=== PATIENT | male | born 1935 | race Caucasian/White ===

== ENCOUNTER → 2016-10-03 | Day surgery (SDC) | payer BC ==
[2016-09-30 13:06] VITALS: Ht 182.9 cm; Wt 70.5 kg
[~2016-10-03] VITALS: Ht 182.9 cm; Wt 70.5 kg
[~2016-10-03] MED LIST: 500ML BSS 0.3ML EPI 1:1000PF IRRIG ONE; ACETAMINOPHEN 325 MG TAB PO PRN; AMVISC PLUS 0.8ML SYRINGE INT OCU ONE; ATROPINE SULFATE 0.1 MG/ML 5ML SYR IV PRN; ATV1 PO; BSS FLUSH ONE; EpHEDrine SULFATE INJ 50 MG/ML AMP IV PRN; EpINEphrine INJ 1MG/ML AMP 1 MG/ML AMP ONE; GABA1CAP4 PO; GABA1CAP5 PO; GATI0.5S OP; LACTATED RINGER'S 1000ML 500 ML IV SCH; LIDOCAINE 3.5% OPH GEL PER APPLICATION CHARGE ONE; LIDOCAINE HCL 1% MPF 2 ML VIAL ONE; LORA-741 PO; MIDAZOLAM HCL 1 MG/ML 2ML VIAL ONE; NRN100 PO; OCUCOAT 1 ML SOLN IO ONE; PEDI1CHW95 PO; POLY335019 PO; POVIDONE-IODINE OP SOLN 30 ML BTL ONE; PRED1SUS3 OPL; PROPARACAINE 0.5% OP SOLN PER DROP CHARGE OPL SCH; TOBRAMYCIN/DEXAMETHASONE OPH OINT PER APPLN CHARGE ONE
[2016-10-03] MEDS: PHENYLEPHRINE HCL 2.5% OP SOLN PER DROP CHARGE OPL SCH ×2 (09:43→09:48)
[2016-10-03] MEDS: TROPICAMIDE 1% OP SOLN PER DROP CHARGE OPL SCH ×2 (09:44→09:49)
[2016-10-03] MEDS: CYCLOPENTOLATE HCL 1% OP SOLN PER DROP CHARGE OPL SCH ×2 (09:45→09:50)
[2016-10-03] MEDS: KETOROLAC 0.5% OP SOLN PER DROP CHARGE OPL SCH ×2 (09:46→09:51)
[2016-10-03] MEDS: GATIFLOXACIN OP SOLN PER DROP CHARGE OPL SCH ×2 (09:47→09:52)
--- NOTE | 2016-10-03 09:48 | History & Physical Bridge - [place] ---
H&P Re-Evaluation Bridge Note: I have examined the patient, reviewed the History & Physical and in the interval since the performance of the History & Physical I have noted the following changes of clinical significance: No changes noted
--- NOTE | 2016-10-03 10:29 | Discharge Instructions-SurgCtr ---
Discharge Instructions Visit Reason for Visit: Cataract Left Eye Discharge Discharge Diagnosis / Problem: cataract Discharge Goals Goal(s): Improve function Activity Recommendations Activity Limitations: per Instructions/Follow-up section Anesthesia . Post Anesthesia Instructions: If you have had General Anesthesia or IV Sedation: * Do not drive today. * Resume driving when surgeon permits. * Do not make important decisions or sign legal documents today. * Call surgeon for: 1. Temperature elevations greater than 101 degrees F. 2. Uncontrollable pain. 3. Excessive bleeding. 4. Persistent nausea and vomiting. 5. Medication intolerance (nausea, vomiting or rash). * For nausea and vomiting use only clear liquids such as: tea, soda, bouillon until nausea subsides, then gradually increase diet as tolerated. * If you have any concerns or questions, call your surgeon's office. If physician is unavailable and it is an emergency, call 911 or go to the nearest emergency room. . Instructions / Follow-Up Instructions / Follow-Up ACTIVITY RECOMMENDATIONS: * No strenuous lifting, jogging or running for 4 days * No swimming or yard work for 1 week. * Limited bending is permitted, such as putting on shoes. RETURN TO SCHOOL/WORK: No work until seen by physician in office. MEDICATIONS: Resume previous medications unless instructed otherwise by your surgeon. This includes eye drops for glaucoma. Zymaxid/Gatifloxacin (oh cap) - one drop every 2 hours until bedtime Nevanac/Ilevro/Prolensa/Ketorolac (ahn cap) - one drop every 4 hours until bedtime Prednisolone (white/pink cap, SHAKE WELL) - one drop every 2 hours until bedtime Starting tomorrow - all 3 drops every 4 hours until seen in the office Optive drops - as needed for discomfort SPECIAL CARE INSTRUCTIONS: * Wear eyeshield when sleeping, for four nights. * You may wear your own glasses or sunglasses while awake. * You may read or watch TV * You may shower and wash your face, but be gentle around the eye and pat dry. * Blurry vision and mild irritation are normal. * Call office if pain is more severe or vision becomes dark at . FOLLOW UP VISIT: Follow-up with Dr Pringle tomorrow. Diet Recommendations Home Diet: resume previous diet Procedures Procedures Performed: Left Cataract Phacoemulsification With Intraocular Lens Implant Pending Studies Studies pending at discharge: no Medical Emergencies . Who to Call and When: Medical Emergencies: If at any time you feel your situation is an emergency, please call 911 immediately. . Non-Emergent Contact Non-Emergency issues call your: Pathology Laboratory Director . . "Provider Documentation" section prepared by Maury Pringle.
--- NOTE | 2016-10-03 10:30 | [facility] Operative Report ---
Operative Report 1. PREOPERATIVE DIAGNOSIS: Cataract of the left eye. 2. POSTOPERATIVE DIAGNOSIS: Same. 3. PROCEDURE: Phacoemulsification with intraocular lens implantation of the left eye. SURGEON: Dr. Maury Pringle. ANESTHESIA: Topical Lidocaine gel, 1% Non- Preserved intracameral Lidocaine, and monitored intravenous sedation. INDICATIONS FOR THE PROCEDURE: The patient is a 81 - year-old male with a history of cataract of the left eye causing significant visual impairment. The details of the proposed procedure were explained to the patient who asked appropriate questions and following discussion of all risks, benefits and alternatives agreed to have the procedure done. 4. OPERATION AND FINDINGS: DESCRIPTION OF PROCEDURE: After informed consent was obtained, the patient was brought to the Operating Room at the [facility]. The patient was placed in a supine position and then the left eye was prepped and draped in the usual sterile fashion for intraocular surgery. A drop of topical Lidocaine gel was placed in the operative eye. A wire lid speculum was then placed in the fornices. A corneal paracentesis was then created temporally. The Non-Preserved Lidocaine was then instilled into the anterior chamber. The anterior chamber was then pressurized with viscoelastic. A 2.0 mm clear corneal incision was then created temporally. A cystotome was inserted into the anterior chamber and used to create a tear in the anterior lens capsule. This capsular tear was then used to create a small flap and the flap was dragged in a counterclockwise direction in order to create a continuous curvilinear capsulorrhexis. Hydrodissection was accomplished with balanced salt solution. Phacoemulsification of the lens nucleus was then performed in a standard [id number] technique. The phaco time was 40 seconds with an average power of 13 %. The remaining cortical material was removed using irrigation aspiration. The capsular bag was then filled with viscoelastic. A Bausch & Lomb MI60L +20.5 diopters lens was then loaded into the injector and injected into the capsular bag. The remaining viscoelastic was removed with the irrigation aspiration handpiece. The wound was hydrated and then checked and found to be watertight. The intraocular pressure was checked and found to be adequate. The wire lid speculum was removed and the patient's face was cleaned and dried. TobraDex ointment was placed in the inferior fornix. The patient was discharged to the Recovery Room having tolerated the procedure well. There were no complications. The patient will be seen tomorrow in the office for follow-up. I attest to the content of the Intraoperative Record and any orders documented therein. Any exceptions are noted below.
[2016-10-03 10:36] VITALS: TEMP 36.4
--- NOTE | 2016-10-03 10:39 | Anesthesia Progress Nt - [facility] ---
Anesthesia Post Op Note Date & Time Oct 03, 2016 at 10:40 Vital Signs Pain Intensity: 0 Vital Signs Past 12 Hours Date Time Temp Pulse Resp B/P Pulse Ox O2 Delivery O2 Flow Rate FiO2 10/03/16 10:36 36.4 69 16 119/75 100 Room Air 10/03/16 09:40 36.5 59 16 133/75 99 Room Air Notes Mental Status: alert / awake / arousable, participated in evaluation Pt Amnestic to Procedure: Yes Nausea / Vomiting: adequately controlled Pain: adequately controlled Airway Patency, RR, SpO2: stable & adequate BP & HR: stable & adequate Hydration State: stable & adequate Anesthetic Complications: no major complications apparent
[2016-10-03 10:52] VITALS: BP 112/72; PULSE 68; O2SAT 98
== END | disposition home or self-care (01) ==
LOC: X.SURG 08:18
PROVIDERS: ATTEND Ophthalmology
DX: H26.9 Unspecified cataract (principal); H54.7 Unspecified visual loss; E78.5 Hyperlipidemia, unspecified; M51.26 Other intervertebral disc displacement, lumbar region; M41.9 Scoliosis, unspecified; E11.9 Type 2 diabetes mellitus without complications; Z98.890 Other specified postprocedural states; Z88.8 Allergy status to other drugs, medicaments and biological substances

== ENCOUNTER → 2016-10-31 | Day surgery (SDC) | payer BC ==
[2016-10-16 10:45] VITALS: Ht 182.9 cm; Wt 70.5 kg
[~2016-10-31] VITALS: Ht 182.9 cm; Wt 70.5 kg
[~2016-10-31] MED LIST changes: -GATI0.5S OP; -PROPARACAINE 0.5% OP SOLN PER DROP CHARGE OPL SCH; +PROPARACAINE 0.5% OP SOLN PER DROP CHARGE OPR SCH
[2016-10-31] MEDS: PHENYLEPHRINE HCL 2.5% OP SOLN PER DROP CHARGE OPR SCH ×2 (07:26→07:32)
[2016-10-31] MEDS: TROPICAMIDE 1% OP SOLN PER DROP CHARGE OPR SCH ×2 (07:27→07:33)
[2016-10-31] MEDS: CYCLOPENTOLATE HCL 1% OP SOLN PER DROP CHARGE OPR SCH ×2 (07:28→07:34)
[2016-10-31] MEDS: KETOROLAC 0.5% OP SOLN PER DROP CHARGE OPR SCH ×2 (07:29→07:35)
[2016-10-31] MEDS: GATIFLOXACIN OP SOLN PER DROP CHARGE OPR SCH ×2 (07:30→07:42)
--- NOTE | 2016-10-31 08:24 | Discharge Instructions-SurgCtr ---
Discharge Instructions Date of Service Oct 31, 2016. Visit Reason for Visit: Cataract Right Eye Discharge Discharge Diagnosis / Problem: cataract Discharge Goals Goal(s): Improve function Activity Recommendations Activity Limitations: per Instructions/Follow-up section Anesthesia . Post Anesthesia Instructions: If you have had General Anesthesia or IV Sedation: * Do not drive today. * Resume driving when surgeon permits. * Do not make important decisions or sign legal documents today. * Call surgeon for: 1. Temperature elevations greater than 101 degrees F. 2. Uncontrollable pain. 3. Excessive bleeding. 4. Persistent nausea and vomiting. 5. Medication intolerance (nausea, vomiting or rash). * For nausea and vomiting use only clear liquids such as: tea, soda, bouillon until nausea subsides, then gradually increase diet as tolerated. * If you have any concerns or questions, call your surgeon's office. If physician is unavailable and it is an emergency, call 911 or go to the nearest emergency room. . Instructions / Follow-Up Instructions / Follow-Up ACTIVITY RECOMMENDATIONS: * No strenuous lifting, jogging or running for 4 days * No swimming or yard work for 1 week. * Limited bending is permitted, such as putting on shoes. RETURN TO SCHOOL/WORK: No work until seen by physician in office. MEDICATIONS: Resume previous medications unless instructed otherwise by your surgeon. This includes eye drops for glaucoma. Zymaxid/Gatifloxacin (oh cap) - one drop every 2 hours until bedtime Nevanac/Ilevro/Prolensa/Ketorolac (ahn cap) - one drop every 4 hours until bedtime Prednisolone (white/pink cap, SHAKE WELL) - one drop every 2 hours until bedtime Starting tomorrow - all 3 drops every 4 hours until seen in the office Optive drops - as needed for discomfort SPECIAL CARE INSTRUCTIONS: * Wear eyeshield when sleeping, for four nights. * You may wear your own glasses or sunglasses while awake. * You may read or watch TV * You may shower and wash your face, but be gentle around the eye and pat dry. * Blurry vision and mild irritation are normal. * Call office if pain is more severe or vision becomes dark at . FOLLOW UP VISIT: Follow-up with Dr Pringle tomorrow. Diet Recommendations Home Diet: resume previous diet Procedures Procedures Performed: Right Cataract Phacoemulsification With Intraocular Lens Implant Pending Studies Studies pending at discharge: no Medical Emergencies . Who to Call and When: Medical Emergencies: If at any time you feel your situation is an emergency, please call 911 immediately. . Non-Emergent Contact Non-Emergency issues call your: Final Expense Agent . . "Provider Documentation" section prepared by Maury Pringle.
--- NOTE | 2016-10-31 08:24 | [facility] Operative Report ---
Operative Report Date of Service Oct 31, 2016. Operative Report 1. PREOPERATIVE DIAGNOSIS: Cataract of the right eye. 2. POSTOPERATIVE DIAGNOSIS: Same. 3. PROCEDURE: Phacoemulsification with intraocular lens implantation of the right eye. SURGEON: Dr. Maury Pringle. ANESTHESIA: Topical Lidocaine gel, 1% Non- Preserved intracameral Lidocaine, and monitored intravenous sedation. INDICATIONS FOR THE PROCEDURE: The patient is a 81 - year-old male with a history of cataract of the right eye causing significant visual impairment. The details of the proposed procedure were explained to the patient who asked appropriate questions and following discussion of all risks, benefits and alternatives agreed to have the procedure done. 4. OPERATION AND FINDINGS: DESCRIPTION OF PROCEDURE: After informed consent was obtained, the patient was brought to the Operating Room at the [facility]. The patient was placed in a supine position and then the right eye was prepped and draped in the usual sterile fashion for intraocular surgery. A drop of topical Lidocaine gel was placed in the operative eye. A wire lid speculum was then placed in the fornices. A corneal paracentesis was then created temporally. The Non-Preserved Lidocaine was then instilled into the anterior chamber. The anterior chamber was then pressurized with viscoelastic. A 2.0 mm clear corneal incision was then created temporally. A cystotome was inserted into the anterior chamber and used to create a tear in the anterior lens capsule. This capsular tear was then used to create a small flap and the flap was dragged in a counterclockwise direction in order to create a continuous curvilinear capsulorrhexis. Hydrodissection was accomplished with balanced salt solution. Phacoemulsification of the lens nucleus was then performed in a standard [id number]-[id number] technique. The phaco time was 35 seconds with an average power of 13 %. The remaining cortical material was removed using irrigation aspiration. The capsular bag was then filled with viscoelastic. A Bausch & Lomb MI60L +20.5 diopters lens was then loaded into the injector and injected into the capsular bag. The remaining viscoelastic was removed with the irrigation aspiration handpiece. The wound was hydrated and then checked and found to be watertight. The intraocular pressure was checked and found to be adequate. The wire lid speculum was removed and the patient's face was cleaned and dried. TobraDex ointment was placed in the inferior fornix. The patient was discharged to the Recovery Room having tolerated the procedure well. There were no complications. The patient will be seen tomorrow in the office for follow-up. I attest to the content of the Intraoperative Record and any orders documented therein. Any exceptions are noted below.
[2016-10-31 08:26] VITALS: TEMP 36.7
[2016-10-31 08:46] VITALS: BP 111/68; PULSE 76; O2SAT 94
--- NOTE | 2016-10-31 08:52 | Anesthesia Progress Nt - [facility] ---
Anesthesia Post Op Note Date & Time Oct 31, 2016 at 08:53 Vital Signs Pain Intensity: 0 Vital Signs Past 12 Hours Date Time Temp Pulse Resp B/P Pulse Ox O2 Delivery O2 Flow Rate FiO2 10/31/16 08:46 76 16 111/68 94 Room Air 10/31/16 08:26 36.7 75 16 92/54 97 Room Air 10/31/16 07:16 36.3 74 20 115/73 100 Room Air Notes Mental Status: alert / awake / arousable, participated in evaluation Pt Amnestic to Procedure: Yes Nausea / Vomiting: adequately controlled Pain: adequately controlled Airway Patency, RR, SpO2: stable & adequate BP & HR: stable & adequate Hydration State: stable & adequate Anesthetic Complications: no major complications apparent
== END | disposition home or self-care (01) ==
LOC: X.SURG 06:57
PROVIDERS: ATTEND Ophthalmology
DX: H26.9 Unspecified cataract (principal); H54.7 Unspecified visual loss; E11.9 Type 2 diabetes mellitus without complications; Z98.42 Cataract extraction status, left eye

== ENCOUNTER → 2016-11-04 | Outpatient (CLI) | payer BC ==
[~2016-11-04] MED LIST changes: -500ML BSS 0.3ML EPI 1:1000PF IRRIG ONE; -ACETAMINOPHEN 325 MG TAB PO PRN; -AMVISC PLUS 0.8ML SYRINGE INT OCU ONE; -ATROPINE SULFATE 0.1 MG/ML 5ML SYR IV PRN; -BSS FLUSH ONE; -EpHEDrine SULFATE INJ 50 MG/ML AMP IV PRN; -EpINEphrine INJ 1MG/ML AMP 1 MG/ML AMP ONE; -LACTATED RINGER'S 1000ML 500 ML IV SCH; -LIDOCAINE 3.5% OPH GEL PER APPLICATION CHARGE ONE; -LIDOCAINE HCL 1% MPF 2 ML VIAL ONE; -MIDAZOLAM HCL 1 MG/ML 2ML VIAL ONE; -OCUCOAT 1 ML SOLN IO ONE; -POVIDONE-IODINE OP SOLN 30 ML BTL ONE; -PROPARACAINE 0.5% OP SOLN PER DROP CHARGE OPR SCH; -TOBRAMYCIN/DEXAMETHASONE OPH OINT PER APPLN CHARGE ONE
[2016-11-04 09:50] LABS: BASO % 0.7 %; BASO ABS # 0.03 K/uL (0-0.2); COMPLETE YES; EOS % 0.7 %; HEMATOCRIT 45.4 % (42-52); IG% 0.2 %; LYMPH % 39.8 %; LYMPH ABS # 1.81 K/uL (1.2-3.4); MEAN CELL VOLUME 92.7 fL (80-100); MEAN CORPUSCULAR HEMOGLOBIN 31.8 pg (25-34); MEAN CORPUSCULAR HGB CONC 34.4 g/dl (32-36); MEAN PLATELET VOLUME 10.1 fL (7.4-10.4); MONO % 10.1 %; NEUT % 48.5 %; PLATELET COUNT 181 K/uL (130-400); WHITE BLOOD COUNT 4.55 K/uL (4.8-10.8)
[2016-11-04 10:17] LABS: ESTIMATED AVERAGE GLUCOSE 171 mg/dl; HA1C FLAG Normal (Normal)
[2016-11-04 10:26] LABS: ALKALINE PHOSPHATASE 72 U/L (45-117); ALT/SGPT 38 U/L (12-78); AST/SGOT 26 U/L (15-37); BLOOD UREA NITROGEN 24 mg/dl (7-18); BUN/CREATININE RATIO 18.5 (10-20); CALCIUM 8.3 mg/dl (8.5-10.1); CARBON DIOXIDE 31 mmol/L (21-32); CHLORIDE 105 mmol/L (98-107); CHOLESTEROL 226 mg/dl (0-200); GLUCOSE 148 mg/dl (70-99); POTASSIUM 4.1 mmol/L (3.5-5.1); SODIUM 143 mmol/L (136-145); TRIGLYCERIDES 150 mg/dl (0-150); URIC ACID 5.4 mg/dl (2.6-7.2); VERY LOW DENSITY LIPOPROT CALC 30 mg/dl
[2016-11-04 10:29] LABS: CHOLESTEROL/HDL RATIO 4.1; HDL CHOLESTEROL 55 mg/dl; LDL CHOLESTEROL CALCULATED 141 mg/dl
== END | disposition home or self-care (01) ==
LOC: C.LAB1850 08:27
PROVIDERS: ATTEND Internal Medicine
DX: E11.9 Type 2 diabetes mellitus without complications (principal); E78.5 Hyperlipidemia, unspecified; D72.819 Decreased white blood cell count, unspecified; K59.00 Constipation, unspecified

== ENCOUNTER 2017-03-18 00:08 | Inpatient (IN) | payer BC, OTHER ==
[~2017-03-18] VITALS: Ht 182.9 cm; Wt 70.0 kg
[~2017-03-18 00:08] MED LIST changes: -ATV1 PO; -GABA1CAP4 PO; -NRN100 PO
[2017-03-18] MEDS ORDERED: ASPIRIN 324 MG CHEW PO STA (00:25)
[2017-03-18] MEDS ORDERED: SODIUM CHLORIDE 0.9% 1000ML 1,000 ML IV ONE (00:30)
[2017-03-18] MEDS ORDERED: NITROGLYCERIN OINT 2% 1GM PACKET EXT ONE (00:30)
[2017-03-18 00:45] LABS: BASO % 0.5 %; BASO ABS # 0.04 K/uL (0-0.2); COMPLETE YES; EOS % 0.7 %; HEMATOCRIT 49.7 % (42-52); IG% 0.1 %; LYMPH % 28.6 %; LYMPH ABS # 2.12 K/uL (1.2-3.4); MEAN CELL VOLUME 94.3 fL (80-100); MEAN CORPUSCULAR HEMOGLOBIN 31.5 pg (25-34); MEAN CORPUSCULAR HGB CONC 33.4 g/dl (32-36); NEUT % 63.1 %; PLATELET COUNT 182 K/uL (130-400); RED BLOOD COUNT 5.27 M/uL (4.7-6.1); WHITE BLOOD COUNT 7.41 K/uL (4.8-10.8)
[2017-03-18] MEDS ORDERED: ATV1 PO (00:48)
[2017-03-18] MEDS ORDERED: GABA1CAP4 PO (00:48)
[2017-03-18] MEDS ORDERED: NRN100 PO (00:48)
[2017-03-18 00:55] LABS: PARTIAL THROMBOPLASTIN RATIO 0.9; PROTHROMBIN TIME (PATIENT) 10.4 SECONDS (9.0-12.0)
[2017-03-18 01:23] LABS: BUN/CREATININE RATIO 18.5 (10-20); CALCIUM 8.6 mg/dl (8.5-10.1); CREATININE 1.2 mg/dl (0.60-1.40); MAGNESIUM 2.2 mg/dl (1.8-2.4); POTASSIUM 4.6 mmol/L (3.5-5.1)
[2017-03-18 01:31] LABS: ALB/GLOB RATIO 1.1 (0.9-2); THYROID STIMULATING HORMONE 3.32 uIu/ml (0.300-4.500)
[2017-03-18] MEDS ORDERED: MoRPHine SULFATE 4 MG/ML 1 ML CARP\\VIAL IV ONE (02:00)
[2017-03-18] MEDS ORDERED: ONDANSETRON INJ 2 MG/ML 2 ML VIAL IV STA (02:19)
[2017-03-18] MEDS ORDERED: RANITIDINE HCL 50 MG/100 ML D5W IV STA (02:24)
[2017-03-18] MEDS ORDERED: ONDANSETRON INJ 2 MG/ML 2 ML VIAL IV PRN ×2 (02:30→06:30)
[2017-03-18] MEDS ORDERED: LORAZEPAM 0.5 MG TAB PO PRN (02:30)
[2017-03-18] MEDS ORDERED: RANITIDINE HCL 50 MG/100 ML D5W ONE (02:32)
[2017-03-18] MEDS ORDERED: PROMETHAZINE HCL INJ 12.5 MG in SODIUM CHLORIDE 0.9% 50ML 50 ML IV PRN (02:45)
--- NOTE | 2017-03-18 02:45 | History and Physical ---
History & Physical Date & Time of Service: Mar 18, 2017 at 02:23 Chief Complaint: Back Pain,Stomach Pain,Chest Pain,Queasiness Primary Care Physician: David Piña M.D. History of Present Illness Source: patient, clinic records, hospital records Mr Lyons is an 81 year old male with Hx idiopathic pancreatitis who presents to the ER with progressively worse epigastric pain, nausea and vomiting. Initially he woke up with back pain radiating to right side of groin which is the same chronic pain he has woken up with for years although this morning it was a lot ore severe (usually is around a 4-5/10, this morning around 7-8/10). The pain usually improves throughout the day however he continued to have pain until he was going to bed. At around 21:30 he took Tylenol and codeine and after which he had sudden onset epigastric pain which was similar to his previous pancreatitis episodes therefore he decided to come to the ER. He denies any fevers or chills. He had some diarrhea earlier in the week which cleared up over the last few days (not unusual for him as he takes Metamucil to stop him becoming constipated but also intermittently causes him to have diarrhea). He is passing plenty of flatus. Last BM was earlier in the afternoon. He denies any bloody or melena stool. In the ER there was concern for some chest pain (the patient now reports this was epigastric rather than chest) and the patient was treated with aspirin and morphine which appeared to make his pain and nausea much worse. His lipase was elevated therefore he was referred as pancreatitis. Past Medical/Surgical History Medical Problems: (1) Acute pancreatitis Status: Resolved (2) ANEMIA NOS Status: Chronic (3) Cholecystectomy Status: Resolved (4) CHRONIC SINUSITIS NEC Status: Chronic (5) DIAB NATALIIA WO COMPL, TYPE II OR UNSPEC TYPE, NOT UNCNTRLD Status: Chronic (6) HYPERLIPIDEMIA NEC/NOS Status: Chronic (7) PURE HYPERCHOLESTEROLEM Status: Chronic Family History Noncontributory Social History Smoking Status: Never Smoker Smokeless Tobacco Use: No Alcohol Use: none Drug Use: none Marital Status: Housing status: lives with family Occupational Status: retired Immunizations History of Influenza Vaccine: Yes History of Tetanus Vaccine?: Yes History of Pneumococcal: Yes Pneumococcal Date: Mar 02, 2004 History of Hepatitis B Vaccine: No Multi-Drug Resistant Organisms History of MDRO: Yes Allergies Coded Allergies: No Known Allergies (Verified , 03/18/17) Home Medications Scheduled Gabapentin (Gabapentin), 300 MG PO TID Gabapentin (Gabapentin), 100 MG PO TID Polyethylene Glycol 3350 (Miralax), 17 GM PO DAILY Scheduled PRN Lorazepam (Lorazepam), 0.5 MG PO DAILY PRN for Anxiety Review of Systems Constitutional: No fever, No chills Eyes: No worsening of vision Respiratory: No cough, No shortness of breath Cardiovascular: No chest pain Abdomen: + pain, + nausea, + vomiting, No diarrhea, No constipation, No GI bleeding Musculoskeletal: No joint pain, No muscle pain Genitourinary - Male: + urinary frequency (increased frequency today), No hematuria, No dysuria, No urinary urgency Integumentary: No rash, No itch Physical Exam Vital Signs Date Time Temp Pulse Resp B/P (MAP) Pulse Ox O2 Delivery O2 Flow Rate FiO2 03/18/17 02:18 84 18 134/80 97 Room Air 03/18/17 00:57 89 03/18/17 00:56 82 18 134/81 98 Room Air 03/18/17 00:28 100 03/18/17 00:13 36.5 65 16 119/91 94 Room Air General Appearance: WD/WN, + moderate distress (from epigastric pain, nausea and vomiting) Eyes: PERRL Respiratory/Chest: chest non-tender, lungs clear, normal breath sounds, no respiratory distress, no accessory muscle use Cardiovascular: regular rate, rhythm, no edema, no murmur, normal peripheral pulses Abdomen/GI: normal bowel sounds, soft, + tenderness (epigastric without rebound or guarding) Back: no CVA tenderness Extremities/Musculoskelatal: no calf tenderness, normal capillary refill, no pedal edema Neurologic/Psych: administrative support assistant II-XII nml as tested, no motor/sensory deficits, alert, oriented x 3 Skin: normal color, warm/dry, no rash Diagnostics Laboratory Results Results Past 24 Hours Test 03/18/17 00:30 03/18/17 00:38 Range/Units White Blood Count 7.41 4.8-10.8 K/uL Red Blood Count 5.27 4.7-6.1 M/uL Hemoglobin 16.6 14.0-18.0 g/dL Hematocrit 49.7 42-52 % Mean Corpuscular Volume 94.3 80-100 fL Mean Corpuscular Hemoglobin 31.5 25-34 pg Mean Corpuscular Hemoglobin Concent 33.4 32-36 g/dl Platelet Count 182 130-400 K/uL Mean Platelet Volume 10.0 7.4-10.4 fL Neutrophils (%) (Auto) 63.1 % Lymphocytes (%) (Auto) 28.6 % Monocytes (%) (Auto) 7.0 % Eosinophils (%) (Auto) 0.7 % Basophils (%) (Auto) 0.5 % Neutrophils # (Auto) 4.67 1.4-6.5 K/uL Lymphocytes # (Auto) 2.12 1.2-3.4 K/uL Monocytes # (Auto) 0.52 0.11-0.59 K/uL Eosinophils # (Auto) 0.05 0-0.5 K/uL Basophils # (Auto) 0.04 0-0.2 K/uL RDW Standard Deviation 44.6 36.4-46.3 fL RDW Coefficient of Variation 12.9 11.5-14.5 % Immature Granulocyte % (Auto) 0.1 % Immature Granulocyte # (Auto) 0.01 0.00-0.02 K/uL Prothrombin Time 10.4 9.0-12.0 SECONDS Prothromb Time International Ratio 1.0 0.9-1.1 Activated Partial Thromboplast Time 24.1 21.0-31.0 SECONDS Partial Thromboplastin Ratio 0.9 Sodium Level 142 136-145 mmol/L Potassium Level 4.6 3.5-5.1 mmol/L Chloride Level 107 98-107 mmol/L Carbon Dioxide Level 29 21-32 mmol/L Anion Gap 6.0 3-11 mmol/L Blood Urea Nitrogen 22 7-18 mg/dl Creatinine 1.20 0.60-1.40 mg/dl Est Creatinine Clear Calc Drug Dose 48.6 ml/min Estimated GFR () 65.8 Estimated GFR (Non- 56.8 BUN/Creatinine Ratio 18.5 10-20 Random Glucose 125 70-99 mg/dl Calcium Level 8.6 8.5-10.1 mg/dl Magnesium Level 2.2 1.8-2.4 mg/dl Total Bilirubin 0.4 0.2-1 mg/dl Aspartate Amino Transf (AST/SGOT) 34 15-37 U/L Alanine Aminotransferase (ALT/SGPT) 35 12-78 U/L Alkaline Phosphatase 80 45-117 U/L Total Protein 6.9 6.4-8.2 gm/dl Albumin 3.6 3.4-5.0 gm/dl Globulin 3.3 2.5-4.0 gm/dl Albumin/Globulin Ratio 1.1 0.9-2 Lipase 1386 73-393 U/L Thyroid Stimulating Hormone (TSH) 3.320 0.300-4.500 uIu/ml Chemistry Specimen Hemolysis Bedside Troponin I < 0.030 0-0.045 ng/ml Diagnostic Radiology CHEST ONE VIEW PORTABLE CLINICAL HISTORY: Chest pains dyspnea COMPARISON STUDY: 09/27/2015 FINDINGS: The bones soft tissues and hemidiaphragms are normal. The cardiomediastinal silhouette is normal. The lungs are clear. The pulmonary vasculature is normal. IMPRESSION: Negative chest. The above report was generated using voice recognition software. It may contain grammatical, syntax or spelling errors. Electronically signed by: Jas Haq M.D. 03/18/2017 6:45 AM Dictated Date/Time: 03/18/2017 6:44 AM EKG Normal sinus rhythm with frequent PVCs Inferior flattening of T waves. Impression Assessment and Plan 81 year old male with recurrent pancreatitis presents with epigastric pain and nausea after acetaminophen/codeine use. Mildly elevated lipase in the ER. Epigastric pain and nausea much worse after ASA and morphine use. Feels similar to previous pancreatitis episodes as per patient. Suspected pancreatitis - mildly elevated lipase however suspect this may increase as he presented to the ER soon after start of his symptoms. Previously described as idiopathic. Prior cholecystectomy noted.. LFTs WNL - IVF give additional 1L bolus now then 200 MLS/HR - acetaminophen IV for pain, avoid opiates due to worsening pain and nausea - Zofran - NPO Possible gastritis - worse epigastric pain following ASA use and Hx of chronic belching - IV ranitidine, avoid NSAIDs Abdominal pain with nausea and vomiting - likely due to above - continues to pass flatus therefore SBO unlikely however will order AXR to assess further for this and constipation. Chronic back pain - continue outpatient gabapentin 400mg TID T2DM - diet controlled - T2DM diet when he returns to a diet VTE Prophylaxis - lovenox 40 mg SQ daily Code - Full Disposition - admit to med/surg Attending Addendum: I have physically seen and examined this patient, have supervised the medical residents activities, and agree with the H&P as noted above with the following exceptions: NONE The patient is awake, well-developed and adequately nourished, alert and oriented 3, normocephalic and atraumatic, lying in bed and in mild acute distress secondary to epigastric pain. HEENT--PERRL, EOMI, mucous membranes and oropharynx dry. Neck--supple, no JVD or bruits, thyroid normal, trachea midline, no adenopathy. Heart--normal S1 and S2, no extra beats, no murmurs, rubs or gallops. Lungs--clear bilaterally with good air movement, no respiratory distress, no accessory muscle use. Abdomen--normal bowel sounds and soft, mild epigastric tenderness. Nondistended , no rebound or guarding. Extremities--no cyanosis, clubbing or edema. There are good distal pulses b/l. Dermatologic--normal skin turgor, normal color, warm and dry, no abnormal lymph nodes, no rash. Neurologic--cranial nerves II through XII grossly intact. Rheumatologic--normal range of motion, nontender, muscles and joints. Psychiatric--normal affect. Assessment and Plan: 1. Recurrent idiopathic pancreatitis/history of cholecystectomy/elevated lipase with normal LFTs. Patient be admitted to medical surgical floor. Nothing by mouth status. Continue IV fluid rehydration with normal saline at 200 ML's per hour. Zofran 4 mg IV every 6 hours when necessary. Ranitidine 50 mg IV every 8 hours. Order abdominal x-ray to assess for possible SBO or perforated viscus. Would have low threshold to order CT abdomen and pelvis to assess for possible pancreatic pseudocyst. Acetaminophen 650 mg IV every 6 hours when necessary. Level of Care Med/Surg Advanced Directives Existing Advance Directive: Yes Existing Living Will: Yes Existing Power of Health Professional: Yes Resuscitation Status FULL RESUSCITATION VTE Prophylaxis VTE Risk Assessment Done? Y/N: Yes Risk Level: Moderate Given or contraindicated: Enoxaparin (Lovenox)SQ Additional Copies To ,David Baca M.D. Resident Tracking Resident Involvement: Resident Care Provided Care Provided: Adult [facility]
[2017-03-18] MEDS ORDERED: SODIUM CHLORIDE 0.9% 1000ML 1,000 ML IV STA (02:46)
[2017-03-18 04:30] VITALS: BP 119/70; PULSE 66; TEMP 36.6; O2SAT 91; Ht 182.9 cm; Wt 70.0 kg
[2017-03-18 04:32] LABS: URINE APPEARANCE CLEAR (CLEAR); URINE BILIRUBIN NEG (NEG); URINE COLOR YELLOW; URINE NITRITE NEG (NEG); UROBILINOGEN NEG (NEG); ZZUR CULT IF INDIC CLEAN CATCH NO
[2017-03-18 04:39] LABS: MANUAL MICROSCOPIC REQUIRED? NO; REVIEW REQ? NO
[2017-03-18] MEDS ORDERED: ACETAMINOPHEN IV 1,000 MG in EMPTY BAG 0 ML IV SCH (06:00)
[2017-03-18 06:16] LABS: BASO % 0.3 %; BASO ABS # 0.02 K/uL (0-0.2); COMPLETE YES; HEMATOCRIT 44.4 % (42-52); IG% 0.1 %; LYMPH % 7.8 %; LYMPH ABS # 0.58 K/uL (1.2-3.4); MEAN CELL VOLUME 94.9 fL (80-100); MEAN CORPUSCULAR HEMOGLOBIN 30.8 pg (25-34); MEAN CORPUSCULAR HGB CONC 32.4 g/dl (32-36); MEAN PLATELET VOLUME 10.3 fL (7.4-10.4); MONO % 6.3 %; NEUT % 85.5 %; PLATELET COUNT 153 K/uL (130-400); RED BLOOD COUNT 4.68 M/uL (4.7-6.1); WHITE BLOOD COUNT 7.42 K/uL (4.8-10.8)
[2017-03-18] MEDS ORDERED: SODIUM CHLORIDE 0.9% 1000ML 1,000 ML IV SCH (06:30)
--- NOTE | 2017-03-18 06:38 | DIAGNOSTIC IMAGING REPORT ---
ABDOMEN 2 VIEWS HISTORY: 81 years-old Male acute abdominal pain ?obstruction COMPARISON: Abdominal radiographs 09/27/2015, CT study 09/29/2015 TECHNIQUE: Upright and supine views of the abdomen FINDINGS: Calcifications within the region of the pancreatic head are again seen, compatible with chronic pancreatitis. Suture material from prior herniorrhaphy is seen. There is no pneumoperitoneum on the upright projection. The bowel gas pattern is nonobstructive. There is moderate volume of formed stool again seen throughout the colon. The imaged lung bases appear clear. There is convex left curvature of the lumbar spine with multilevel intervertebral disc space narrowing, endplate spurring and facet arthropathy. 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 The bones are moderately demineralized without fracture identified. No urolith is seen. IMPRESSION: 1. Nonobstructive bowel gas pattern without evidence of pneumoperitoneum. 2. Moderate volume of formed colonic stool may reflect constipation within the appropriate clinical setting. 3. Evidence of chronic pancreatitis. The above report was generated using voice recognition software. It may contain grammatical, syntax or spelling errors. Electronically signed by: Miguelito Hinds M.D. 03/18/2017 6:37 AM Dictated Date/Time: 03/18/2017 6:34 AM
--- NOTE | 2017-03-18 06:46 | DIAGNOSTIC IMAGING REPORT ---
CHEST ONE VIEW PORTABLE CLINICAL HISTORY: Chest pains dyspnea COMPARISON STUDY: 09/27/2015 FINDINGS: The bones soft tissues and hemidiaphragms are normal. The cardiomediastinal silhouette is normal. The lungs are clear. The pulmonary vasculature is normal. IMPRESSION: Negative chest. The above report was generated using voice recognition software. It may contain grammatical, syntax or spelling errors. Electronically signed by: Jas Haq M.D. 03/18/2017 6:45 AM Dictated Date/Time: 03/18/2017 6:44 AM
[2017-03-18 06:47] LABS: BUN/CREATININE RATIO 17.6 (10-20); CALCIUM 7.9 mg/dl (8.5-10.1); CREATININE 1.1 mg/dl (0.60-1.40); POTASSIUM 4.1 mmol/L (3.5-5.1)
[2017-03-18 07:12] VITALS: BP 91/47; PULSE 65; TEMP 36.5; O2SAT 97
--- NOTE | 2017-03-18 07:34 | EMERGENCY ROOM VISIT NOTE ---
History First contact with patient: 00:17 Chief Complaint: CHEST PAIN Stated Complaint: ACUTE GASTRITIS, EPIGASTRIC ABDOMINAL PAIN, Nursing Triage Summary: Pt reports chronic hip pain took tylenol #3 and then developed CP History of Present Illness The patient is a 81 year old male who presents to the Emergency Room with complaints of chest pain that began about 2-3 hours prior to arrival. Patient states that he has chronic hip pain bilaterally that is worse in the morning. He states this has been bothering him more today than normal, and he took Tylenol 3 about 3 hours ago. Following this he began having vague chest pain that felt dull. The patient does not have a distinct cardiac history. He does not have dyspnea on exertion or shortness of breath. The patient does have a history of pancreatitis in the past. The patient rates his discomfort a 6/10 nonradiating Review of Systems More than 10 systems were reviewed and otherwise negative with the exception of history of present illness. Past Medical/Surgical History Medical Problems: (1) Acute gastritis (2) Acute pancreatitis (3) ANEMIA NOS (4) Cholecystectomy (5) CHRONIC SINUSITIS NEC (6) DIAB NATALIIA WO COMPL, TYPE II OR UNSPEC TYPE, NOT UNCNTRLD (7) HYPERLIPIDEMIA NEC/NOS (8) PURE HYPERCHOLESTEROLEM Family History No pertinent family history Social History Smoking Status: Never Smoker Alcohol Use: none Marital Status: Housing Status: lives with significant other Occupation Status: retired Current/Historical Medications Scheduled Gabapentin (Gabapentin), 300 MG PO TID Gabapentin (Gabapentin), 100 MG PO TID Polyethylene Glycol 3350 (Miralax), 17 GM PO DAILY Scheduled PRN Lorazepam (Lorazepam), 0.5 MG PO DAILY PRN for Anxiety Physical Exam Vital Signs Date Time Temp Pulse Resp B/P (MAP) Pulse Ox O2 Delivery O2 Flow Rate FiO2 03/18/17 02:18 84 18 134/80 97 Room Air 03/18/17 00:57 89 03/18/17 00:56 82 18 134/81 98 Room Air 03/18/17 00:28 100 03/18/17 00:13 36.5 65 16 119/91 94 Room Air Pain Rating (0-10): 10.0 Physical Exam VITALS: Vitals are noted on the nurse's note and reviewed by myself. Vital signs stable. GENERAL: Well-developed, well-nourished, white male, who is in no acute distress and resting comfortably. Patient is cooperative with the examination. HEAD: Normocephalic atraumatic. HEART: Regular rate and rhythm without murmurs gallops or rubs. LUNGS: Clear to auscultation bilaterally without wheezes, rales or rhonchi. No retractions or accessory muscle use. ABDOMEN: Positive normal bowel sounds x 4. Soft with epigastric tenderness on palpation. No rebound or guarding. No lower abdominal tenderness. MUSCULOSKELETAL: No muscle atrophy, erythema, or edema noted. Full range of motion without joint tenderness in all extremities. Medical Decision & Procedures ER Provider Diagnostic Interpretation: CHEST ONE VIEW PORTABLE CLINICAL HISTORY: Chest pains dyspnea COMPARISON STUDY: 09/27/2015 FINDINGS: The bones soft tissues and hemidiaphragms are normal. The cardiomediastinal silhouette is normal. The lungs are clear. The pulmonary vasculature is normal. IMPRESSION: Negative chest. Laboratory Results Test 03/18/17 00:00 03/18/17 00:30 03/18/17 00:38 Urine Color YELLOW Urine Appearance CLEAR (CLEAR) Urine pH 7.0 (4.5-7.5) Urine Specific [place] 1.010 (1.000-1.030) Urine Protein NEG (NEG) Urine Glucose (UA) NEG (NEG) Urine Ketones NEG (NEG) Urine Occult Blood NEG (NEG) Urine Nitrite NEG (NEG) Urine Bilirubin NEG (NEG) Urine Urobilinogen NEG (NEG) Urine Leukocyte Esterase NEG (NEG) Prothrombin Time 10.4 SECONDS (9.0-12.0) Prothromb Time International Ratio 1.0 (0.9-1.1) Activated Partial Thromboplast Time 24.1 SECONDS (21.0-31.0) Partial Thromboplastin Ratio 0.9 Magnesium Level 2.2 mg/dl (1.8-2.4) Thyroid Stimulating Hormone (TSH) 3.320 uIu/ml (0.300-4.500) Chemistry Specimen Hemolysis Bedside Troponin I < 0.030 ng/ml (0-0.045) Medications Administered Medications (Trade) Dose Ordered Sig/Kenny Route Start Time Stop Time Status Last Admin Dose Admin Aspirin (Aspirin Chew) 324 mg NOW STAT PO 03/18/17 00:25 03/18/17 00:28 DC 03/18/17 00:25 324 MG Nitroglycerin (Nitroglycerin 2% Oint) 1 inch NOW ONCE EXT 03/18/17 00:30 03/18/17 00:31 DC 03/18/17 00:30 1 INCH Sodium Chloride 1,000 ml @ 333 mls/hr Q3H1M ONCE IV 03/18/17 00:30 03/18/17 03:30 DC 03/18/17 00:30 333 MLS/HR Morphine Sulfate (MoRPHine SULFATE INJ) 4 mg NOW ONCE IV 03/18/17 02:00 03/18/17 02:01 DC 03/18/17 02:18 4 MG ED Course Physical exam and history were performed. Nursing notes, EMR, and Medication List were personally reviewed. Patient appears to have chest/epigastric pain for the past few hours. IV access was established and labs were obtained. The patient was given aspirin by mouth and 1 inch Nitropaste. EKG was performed and was normal sinus rhythm with frequent PVCs. He did not have distinct ischemic findings. The patient was placed on a help desk operator. The patient's blood work is as above and was reviewed. He does not have a significantly elevated white blood cell count worsening anemia, bandemia, or significant electrolyte imbalance. The patient's lipase is elevated at greater than 1300, and his symptoms may represent an acute pancreatitis. Troponin 1 is negative. Chest x-ray does not show acute findings. On reevaluation the patient had worsening of his pain after given oral aspirin. As he does have an elevated lipase I suspect that his symptoms are related to pancreatitis and he was given IV morphine and IV Zofran, which did help his symptoms. I discussed the case with the on-call hospitalist as the patient symptoms clinically correlate with an acute pancreatitis. Please see the hospitalist dictation for further patient course, plan, and disposition. The chart was completed utilizing [email or web address] Speech Voice Recognition Software. Grammatical errors, random word insertions, pronoun errors, and incomplete sentences are an occasional consequence of this system due to software limitations, ambient noise, and hardware issues. Any formal questions or concerns about the content, text, or information contained within the body of this dictation should be directly addressed to the provider for clarification. . Medical Decision Differential diagnosis includes, but is not limited to: Myocardial infarction, dysrhythmia, pericarditis, pneumothorax, aortic aneurysm/dissection, DVT/PE, anxiety, GERD, PUD, electrolyte imbalance, thyroid disorder, pneumonia, bronchitis, pancreatitis, and others [place] Drug Monitoring Program Search Results: no issues identified Medication Reconcilliation Current Medication List: was personally reviewed by me Blood Pressure Screening Patient's blood pressure: Normal blood pressure Impression Primary Impression: Acute pancreatitis Departure Information Dispostion Still a Patient Condition FAIR Referrals Pro,David Baca M.D. (PCP) Forms HOME CARE DOCUMENTATION FORM, IMPORTANT VISIT INFORMATION Patient Instructions My [facility]
--- NOTE | 2017-03-18 07:41 | DIAGNOSTIC IMAGING REPORT ---
ABD/PELVIS NO IV OR ORAL CONT HISTORY: 81 years-old Male acute back and stomach pain. Concern for acute pancreatitis. COMPARISON: CT abdomen and pelvis 09/29/2015 TECHNIQUE: Multiple axial CT images of the abdomen and pelvis were obtained without contrast. A dose lowering technique was used consistent with the principals of IDA. FINDINGS: There is minimal dependent bibasilar atelectasis. Small right Bochdalek hernia is noted. There is no pneumoperitoneum. Coronary arterial calcifications are partially imaged. The liver, spleen, and adrenal glands appear to be within normal limits. Prior cholecystectomy. There is moderate pancreatic atrophy. Calcifications within the region of the pancreatic head are again seen compatible with chronic pancreatitis. No biliary ductal dilatation is identified. There is no significant intrapancreatic or peripancreatic edema to suggest acute pancreatitis. No peripancreatic fluid collections are identified. The kidneys, ureters and urinary bladder are unremarkable. The prostate is mildly enlarged, 4.9 cm transversely containing central coarse calcifications. Small fat filled left inguinal hernia is present. There is mild atherosclerotic plaquing of the abdominal and iliac vascularity. No bulky adenopathy is seen. There is a very small sliding-type hiatal hernia. No bowel obstruction. Moderate volume of formed stool is seen throughout the colon. There is no evidence of acute appendicitis. Evidence of prior right anterior abdominal wall herniorrhaphy. The bones are moderately demineralized. Moderate degenerative changes are seen within the bilateral hips. 1.3 cm synovial herniation pit of the right femoral neck is seen. There is convex left curvature of the lumbar spine with multilevel discogenic degenerative changes. IMPRESSION: 1. No acute intra-abdominal or intrapelvic abnormality identified. 2. Evidence of chronic pancreatitis. There is no CT evidence to suggest acute pancreatitis at this time. No peripancreatic fluid collections are seen. 3. Prostamegaly. 4. Very small sliding-type hiatal hernia. 5. No bowel obstruction. The above report was generated using voice recognition software. It may contain grammatical, syntax or spelling errors. Electronically signed by: Miguelito Hinds M.D. 03/18/2017 7:40 AM Dictated Date/Time: 03/18/2017 7:33 AM
--- NOTE | 2017-03-18 08:49 | Family Medicine Progress Note ---
Progress Note Date of Service Mar 18, 2017. Subjective Pt evaluation today including: conversation w/ patient, physical exam, chart review, lab review, review of studies Pain: Patient denies any pain this morning Voiding: no voiding problems, no incontinence Patient is resting comfortably in bed this morning with no acute complaints overnight. The patient states that the pain at home last night initially occurred after taking a codeine/tylenol pill, and then in the ED after taking Morphine it acutely worsened. The patient also states that he is hungry this afternoon. He denies any nausea, vomiting, abdominal pain, chest pain, shortness of breath, fever, or chills recently. Constitutional: No fever, No chills Respiratory: No cough, No shortness of breath Cardiovascular: No chest pain, No palpitations Abdomen: No pain, No nausea, No vomiting, No diarrhea, No constipation Male : No dysuria Medications Current Inpatient Medications Medications (Trade) Dose Ordered Sig/Kenny Route Start Time Stop Time Status Last Admin Dose Admin Ranitidine HCl 50 mg/Dextrose 102 ml @ 200 mls/hr Q8H IV 03/18/17 14:00 04/17/17 13:59 Enoxaparin Sodium (Lovenox Inj) 40 mg Q24H SQ 03/18/17 07:00 04/17/17 06:59 Gabapentin (Neurontin Cap) 100 mg TID PO 03/18/17 09:00 04/17/17 08:59 Gabapentin (Neurontin Cap) 300 mg TID PO 03/18/17 09:00 04/17/17 08:59 Lorazepam (Ativan Tab) 0.5 mg DAILY PRN PO 03/18/17 02:30 04/17/17 02:29 Promethazine HCl 12.5 mg/Sodium Chloride 50.5 ml @ 204 mls/hr Q6H PRN IV 03/18/17 02:45 04/17/17 02:44 03/18/17 04:49 204 MLS/HR Acetaminophen 1000 mg/Empty Bag 100 ml @ 400 mls/hr Q8H IV 03/18/17 06:00 04/17/17 05:59 03/18/17 04:50 400 MLS/HR Sodium Chloride 1,000 ml @ 200 mls/hr Q5H IV 03/18/17 06:30 04/17/17 06:29 03/18/17 06:39 200 MLS/HR Ondansetron HCl (Zofran Inj) 4 mg Q4H PRN IV 03/18/17 06:30 04/17/17 02:29 Objective Vital Signs Date Time Temp Pulse Resp B/P (MAP) Pulse Ox O2 Delivery O2 Flow Rate FiO2 03/18/17 07:12 36.5 65 18 91/47 (62) 97 Room Air 03/18/17 04:30 36.6 66 16 119/70 91 Room Air 03/18/17 02:18 84 18 134/80 97 Room Air 03/18/17 00:57 89 03/18/17 00:56 82 18 134/81 98 Room Air 03/18/17 00:28 100 03/18/17 00:13 36.5 65 16 119/91 94 Room Air Physical Exam General Appearance: WD/WN, no apparent distress Eyes: normal inspection, sclerae normal Respiratory/Chest: chest non-tender, lungs clear, normal breath sounds Cardiovascular: regular rate, rhythm, no edema, no gallop Abdomen: normal bowel sounds, non tender, soft Neurologic/Psychiatric: alert, normal mood/affect, oriented x 3 Laboratory Results Results Past 24 Hours Test 03/18/17 00:00 03/18/17 00:30 03/18/17 00:38 03/18/17 05:33 Range/Units Urine Color YELLOW Urine Appearance CLEAR CLEAR Urine pH 7.0 4.5-7.5 Urine Specific [place] 1.010 1.000-1.030 Urine Protein NEG NEG Urine Glucose (UA) NEG NEG Urine Ketones NEG NEG Urine Occult Blood NEG NEG Urine Nitrite NEG NEG Urine Bilirubin NEG NEG Urine Urobilinogen NEG NEG Urine Leukocyte Esterase NEG NEG White Blood Count 7.41 7.42 4.8-10.8 K/uL Red Blood Count 5.27 4.68 4.7-6.1 M/uL Hemoglobin 16.6 14.4 14.0-18.0 g/dL Hematocrit 49.7 44.4 42-52 % Mean Corpuscular Volume 94.3 94.9 80-100 fL Mean Corpuscular Hemoglobin 31.5 30.8 25-34 pg Mean Corpuscular Hemoglobin Concent 33.4 32.4 32-36 g/dl Platelet Count 182 153 130-400 K/uL Mean Platelet Volume 10.0 10.3 7.4-10.4 fL Neutrophils (%) (Auto) 63.1 85.5 % Lymphocytes (%) (Auto) 28.6 7.8 % Monocytes (%) (Auto) 7.0 6.3 % Eosinophils (%) (Auto) 0.7 0.0 % Basophils (%) (Auto) 0.5 0.3 % Neutrophils # (Auto) 4.67 6.34 1.4-6.5 K/uL Lymphocytes # (Auto) 2.12 0.58 1.2-3.4 K/uL Monocytes # (Auto) 0.52 0.47 0.11-0.59 K/uL Eosinophils # (Auto) 0.05 0.00 0-0.5 K/uL Basophils # (Auto) 0.04 0.02 0-0.2 K/uL RDW Standard Deviation 44.6 44.8 36.4-46.3 fL RDW Coefficient of Variation 12.9 12.9 11.5-14.5 % Immature Granulocyte % (Auto) 0.1 0.1 % Immature Granulocyte # (Auto) 0.01 0.01 0.00-0.02 K/uL Prothrombin Time 10.4 9.0-12.0 SECONDS Prothromb Time International Ratio 1.0 0.9-1.1 Activated Partial Thromboplast Time 24.1 21.0-31.0 SECONDS Partial Thromboplastin Ratio 0.9 Sodium Level 142 140 136-145 mmol/L Potassium Level 4.6 4.1 3.5-5.1 mmol/L Chloride Level 107 106 98-107 mmol/L Carbon Dioxide Level 29 29 21-32 mmol/L Anion Gap 6.0 5.0 3-11 mmol/L Blood Urea Nitrogen 22 19 7-18 mg/dl Creatinine 1.20 1.10 0.60-1.40 mg/dl Est Creatinine Clear Calc Drug Dose 48.6 53.0 ml/min Estimated GFR () 65.8 73.1 Estimated GFR (Non- 56.8 63.1 BUN/Creatinine Ratio 18.5 17.6 10-20 Random Glucose 125 217 70-99 mg/dl Calcium Level 8.6 7.9 8.5-10.1 mg/dl Magnesium Level 2.2 1.8-2.4 mg/dl Total Bilirubin 0.4 0.8 0.2-1 mg/dl Aspartate Amino Transf (AST/SGOT) 34 357 15-37 U/L Alanine Aminotransferase (ALT/SGPT) 35 189 12-78 U/L Alkaline Phosphatase 80 92 45-117 U/L Total Protein 6.9 6.2 6.4-8.2 gm/dl Albumin 3.6 3.1 3.4-5.0 gm/dl Globulin 3.3 3.1 2.5-4.0 gm/dl Albumin/Globulin Ratio 1.1 1.0 0.9-2 Lipase 1386 1993 73-393 U/L Thyroid Stimulating Hormone (TSH) 3.320 0.300-4.500 uIu/ml Chemistry Specimen Hemolysis Bedside Troponin I < 0.030 0-0.045 ng/ml Assessment and Plan Patient is an 81 year old male with a past medical history of chronic pancreatitis that presented to the ED this evening with epigastric abdominal pain 1) Acute on Chronic Pancreatitis - 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 - Repeat US, Lipase, and LFTs tomorrow 2) Chronic Back Pain - Gabapentin 400mg TID 3) Type 2 DM - Diet controlled as outpatient - Insulin Sliding Scale 4) DVT Prophylaxis - Lovenox 5) Code Status - Full Resuscitation Resident Physician Supervision Note: I interviewed and examined the patient. Discussed with Dr. Hernandes and agree with findings and plan as documented in the note. Any exceptions or clarifications are listed here: None Documented By: Daryl Cruz feeling better pain better just a twinge off and on. pain started right after taking codeine for back pain, then worsened again in ER when given morphine for pain. relates prior episode of pancreatitis appears to have been not clear etiology - started after playing tennis, then ate a salad then felt terrible. doesn't recall pain meds at the time. all other ROS otherwise negative except for as above vitals noted nad breathing unlabored no pallor or icterus acute on chronic pancreatitis -chronic by imaging - discussing with him seems to have been one other acute episode -w timing related to pain meds this particular occurence seems possibly sphincter of oddi dysfunction -GI consult ?ERCP otherwise as above Resident Tracking Resident Involvement: Resident Care Provided Care Provided: Adult Hospital Medicine Resident Tracking Resident Involvement: Resident Care Provided Care Provided: Adult Hospital Medicine
--- NOTE | 2017-03-18 09:03 | DIAGNOSTIC IMAGING REPORT ---
(LIVER) ABDOMEN LIMITED CLINICAL HISTORY: pancreatitis, raised LFTs ?CBD dilatation TECHNIQUE: Ultrasound COMPARISON STUDY: 05/03/2015 FINDINGS: Slightly heterogeneous pancreas. Pancreatic duct 3 mm. Common bile duct 10 millimeters, although the distal common duct is now well seen.. Prior cholecystectomy. Right kidney is negative for hydronephrosis. The intrahepatic ducts are unremarkable. IMPRESSION: 1. Prior cholecystectomy. 2. Heterogeneous pancreas possibly on the basis of chronic pancreatitis/atrophy. 3. Common bile duct 10 mm. No evidence for dilatation of the intrahepatic ducts. The above report was generated using voice recognition software. It may contain grammatical, syntax or spelling errors. Electronically signed by: Jas Haq M.D. 03/18/2017 9:02 AM Dictated Date/Time: 03/18/2017 8:58 AM
[2017-03-18] MEDS ORDERED: GLUCAGON FOR INJ 1 MG VIAL SQ PRN (10:00)
[2017-03-18] MEDS ORDERED: GLUCOSE 10 TABS/TUBE PO PRN (10:00)
[2017-03-18] MEDS ORDERED: GLUCOSE 40% GEL 15 GM TUBE PO PRN (10:00)
[2017-03-18] MEDS ORDERED: DEXTROSE 50% 50 ML SYR IV PRN (10:00)
[2017-03-18] MEDS ORDERED: HYDROmorphone INJ 0.5 MG/0.5 ML SYR IV PRN (10:45)
[2017-03-18] MEDS ORDERED: INSULIN ASPART 100 UNITS/ML 3 ML PEN SC SCH (11:00)
[2017-03-18] MEDS: ENOXAPARIN 40 MG/0.4 ML SYR SQ SCH (11:04)
[2017-03-18] MEDS: GABAPENTIN 100 MG CAP PO SCH ×3 (11:08→21:36)
[2017-03-18] MEDS: GABAPENTIN 300 MG CAP PO SCH ×3 (11:08→21:35)
[2017-03-18] MEDS: LACTATED RINGER'S 1000ML 1,000 ML IV SCH ×3 (11:10→21:41)
[2017-03-18] MEDS ORDERED: NURSING VERBAL MED ORDER ONE ×2 (11:15→13:30)
[2017-03-18 11:46] LABS: ESTIMATED AVERAGE GLUCOSE 163 mg/dl; HA1C FLAG Normal (Normal)
[2017-03-18] MEDS: INSULIN ASPART 100 UNITS/ML 3 ML PEN SC SCH ×2 (12:00→18:00)
--- NOTE | 2017-03-18 13:00 | Gastrointestinal Consultation ---
Gastrointestinal Consultation Date of Consultation: Mar 18, 2017 Attending Physician: Dr. Hernandes Consulting Physician: Dr. Herron Reason for Consultation: Pancreatitis History of Present Illness Patient is a 81 year old male patient of Dr. Piña with a hx of prior idiopathic pancreatitis, DM-2, hyperlipidemia presented to the ED today for epigastric pain , nausea and vomiting. GI is consulted for pancreatitis. He had been having worsening of chronic hip pain yesterday having taken a Tylenol with Codeine last evening. Soon after, around 10PM, he began with moderately severe upper abdomen pain that quickly escalated. He soon also experienced nausea and dry heaves. He has not had jaundice, icterus or acholic stools. Due to persistent symptoms, he presented to the ED around midnight. On arrival, lipase was 1386 and this morning lipase was 1994. LFTs have been normal. US with prior cholecystectomy, heterogeneous pancreas possibly on the basis of chronic pancreatitis/atrophy, common bile duct 10 mm. No evidence for dilatation of the intrahepatic ducts. Non contrast CT suggested chronic pancreatitis, without acute pancreatitis or peripancreatic fluid. His Hb was 16.4 on arrival and has decreased to 14.4 with LR at 200/hr. WBC is 7 and Cr is 1.1. He is seen and examined while he is resting in bed. He is awake, alert, oriented, w/o tachycardia or diaphoresis and he tells me that his pain is now minimal and he is hungry. Past Medical/Surgical History Past Medical History: 1. Hyperlipidemia 2. DM-2 3. Acute pancreatitis 4. Arthritis Past Surgical History: 1. Cholecystectomy Social History Smoking Status: Never Smoker Alcohol Use: none Marital Status: Housing Status: lives with significant other Occupation Status: retired Allergies Coded Allergies: No Known Allergies (Verified , 03/18/17) Current Medications Home Meds and Scripts Medications Dose Route/Sig Max Daily Dose Days Date Category Dose Instructions Gabapentin 100 Mg Cap 100 Mg PO TID 03/18/17 Reported `TOTAL DOSE IS 400MG PO TID Gabapentin 300 Mg Cap 300 Mg PO TID 03/18/17 Reported `TOTAL DOSE IS 400MG PO TID Lorazepam 1 Mg Tab 0.5 Mg PO DAILY PRN 03/18/17 Reported Miralax (Polyethylene Glycol 3350) 1 Pow Pow 17 Gm PO DAILY 09/30/16 Reported Review of Systems Constitutional: No fever, No chills, No sweats, No weight loss, No weakness Eyes: No eye pain, No redness ENT: No sore throat, No trouble swallowing, No pain on swallowing Respiratory: No cough, No wheezing, No shortness of breath, No dyspnea on exertion Cardiac: No chest pain, No edema, No palpitations Abdomen: + see HPI, + pain, + nausea, + vomiting, No constipation, No GI bleeding, No dysphagia, No odynophagia Neuro: No memory loss, No weakness, No numbness/tingling, No vertigo, No balance problems Psych: No depression symptoms, No anxiety, No insomnia Heme: No abnormal bleeding/bruising, No night sweats Endo: No excessive thirst, No excessive urination Skin: No rash, No itch, No new/changing skin lesions, No jaundice Physical Exam Date Time Temp Pulse Resp B/P (MAP) Pulse Ox O2 Delivery O2 Flow Rate FiO2 03/18/17 08:15 Room Air 03/18/17 07:12 36.5 65 18 91/47 (62) 97 Room Air 03/18/17 04:30 36.6 66 16 119/70 91 Room Air 03/18/17 02:18 84 18 134/80 97 Room Air 03/18/17 00:57 89 03/18/17 00:56 82 18 134/81 98 Room Air 03/18/17 00:28 100 03/18/17 00:13 36.5 65 16 119/91 94 Room Air General Appearance: no apparent distress Eyes: normal inspection, EOMI Neck: supple, no adenopathy, thyroid normal, no JVD Respiratory/Chest: chest non-tender, lungs clear, normal breath sounds, no accessory muscle use Cardiovascular: regular rate, rhythm, no JVD, no murmur Abdomen: normal bowel sounds, soft, no organomegaly, + tenderness (minimal epigastric tenderness) Extremities: normal inspection, no pedal edema, normal capillary refill Neurologic/Psych: alert, normal mood/affect, oriented x 3 Skin: normal color, no jaundice, warm/dry, no rash Laboratory Results Last 24 Hours Test 03/18/17 00:00 03/18/17 00:30 03/18/17 00:38 03/18/17 05:33 Urine Color YELLOW Urine Appearance CLEAR Urine pH 7.0 Urine Specific [place] 1.010 Urine Protein NEG Urine Glucose (UA) NEG Urine Ketones NEG Urine Occult Blood NEG Urine Nitrite NEG Urine Bilirubin NEG Urine Urobilinogen NEG Urine Leukocyte Esterase NEG White Blood Count 7.41 K/uL 7.42 K/uL Red Blood Count 5.27 M/uL 4.68 M/uL Hemoglobin 16.6 g/dL 14.4 g/dL Hematocrit 49.7 % 44.4 % Mean Corpuscular Volume 94.3 fL 94.9 fL Mean Corpuscular Hemoglobin 31.5 pg 30.8 pg Mean Corpuscular Hemoglobin Concent 33.4 g/dl 32.4 g/dl Platelet Count 182 K/uL 153 K/uL Mean Platelet Volume 10.0 fL 10.3 fL Neutrophils (%) (Auto) 63.1 % 85.5 % Lymphocytes (%) (Auto) 28.6 % 7.8 % Monocytes (%) (Auto) 7.0 % 6.3 % Eosinophils (%) (Auto) 0.7 % 0.0 % Basophils (%) (Auto) 0.5 % 0.3 % Neutrophils # (Auto) 4.67 K/uL 6.34 K/uL Lymphocytes # (Auto) 2.12 K/uL 0.58 K/uL Monocytes # (Auto) 0.52 K/uL 0.47 K/uL Eosinophils # (Auto) 0.05 K/uL 0.00 K/uL Basophils # (Auto) 0.04 K/uL 0.02 K/uL RDW Standard Deviation 44.6 fL 44.8 fL RDW Coefficient of Variation 12.9 % 12.9 % Immature Granulocyte % (Auto) 0.1 % 0.1 % Immature Granulocyte # (Auto) 0.01 K/uL 0.01 K/uL Prothrombin Time 10.4 SECONDS Prothromb Time International Ratio 1.0 Activated Partial Thromboplast Time 24.1 SECONDS Partial Thromboplastin Ratio 0.9 Sodium Level 142 mmol/L 140 mmol/L Potassium Level 4.6 mmol/L 4.1 mmol/L Chloride Level 107 mmol/L 106 mmol/L Carbon Dioxide Level 29 mmol/L 29 mmol/L Anion Gap 6.0 mmol/L 5.0 mmol/L Blood Urea Nitrogen 22 mg/dl 19 mg/dl Creatinine 1.20 mg/dl 1.10 mg/dl Est Creatinine Clear Calc Drug Dose 48.6 ml/min 53.0 ml/min Estimated GFR () 65.8 73.1 Estimated GFR (Non- 56.8 63.1 BUN/Creatinine Ratio 18.5 17.6 Random Glucose 125 mg/dl 217 mg/dl Calcium Level 8.6 mg/dl 7.9 mg/dl Magnesium Level 2.2 mg/dl Total Bilirubin 0.4 mg/dl 0.8 mg/dl Aspartate Amino Transf (AST/SGOT) 34 U/L 357 U/L Alanine Aminotransferase (ALT/SGPT) 35 U/L 189 U/L Alkaline Phosphatase 80 U/L 92 U/L Total Protein 6.9 gm/dl 6.2 gm/dl Albumin 3.6 gm/dl 3.1 gm/dl Globulin 3.3 gm/dl 3.1 gm/dl Albumin/Globulin Ratio 1.1 1.0 Lipase 1386 U/L 1994 U/L Thyroid Stimulating Hormone (TSH) 3.320 uIu/ml Chemistry Specimen Hemolysis Bedside Troponin I < 0.030 ng/ml Test 03/18/17 11:20 03/18/17 12:25 Estimated Average Glucose 163 mg/dl Hemoglobin A1c 7.3 % Troponin I < 0.015 ng/ml Bedside Glucose 107 mg/dl Impression Patient is a 81 year old male with acute on chronic pancreatitis. He is already clinically improving. There is no clear etiology. He has never been a heavy drinker, consuming 1-2 oz of wine/month and has never been a smoker. He does not have a family hx of pancreatitis or pancreas cancer. Plan 1. Etiology of pancreatitis explained. 2. Clear liquids po. 3. MRI/MRCP, though pt reluctant due to claustrophobia so could arrange as an OP at [facility]. 4. Check Lipase again tomorrow. I have seen, examined this patient and agree with the plan and exam as outlined above by IMMANUEL Dailey. -Uncomplicated pancreatitis -No alarm symptoms -LFT's mildly up -MRI/MRCP -Follow LFT"s
[2017-03-18] MEDS: RANITIDINE IV 50 MG in DEXTROSE 5% 100ML 100 ML IV SCH ×2 (14:40→21:50)
[2017-03-18 15:16] VITALS: BP 136/71; PULSE 57; TEMP 36.5; O2SAT 99
[2017-03-18] MEDS ORDERED: LORAZEPAM INJ 1 MG in SYRINGE 0.5 ML IV SCH (16:00)
--- NOTE | 2017-03-18 21:24 | DIAGNOSTIC IMAGING REPORT ---
MRCP CLINICAL HISTORY: 81 years-old Male presenting with pancreatitis, severe lower back pain with hip pain, started one day ago, diarrhea, burping, bloating, history of cholecystectomy. TECHNIQUE: Multisequence, multiplanar MR imaging of the abdomen was performed without the use of intravenous contrast. 3-D volumetric and/or maximum intensity projection (MIP) images were subsequently reconstructed for review. IV contrast: None. COMPARISON: CT from 03/18/2017. FINDINGS: Localizer images: Unremarkable. Lung bases: Lung bases clear. No pericardial or pleural effusion. Liver: Normal morphology and signal intensity. Allowing for noncontrast technique, possible hepatic cyst or hamartoma in the left hepatic lobe. Normal flow related enhancement in the hepatic vasculature. Biliary: Intrahepatic biliary trifurcation. Mild intrahepatic and extrahepatic biliary ductal dilatation, which tapers smoothly to the ampulla of Vater. This likely relates to a reservoir effect in the post cholecystectomy state and secondary to the patient's age. No obstructing mass or calculus in the common duct. Mild dilatation of the cystic duct remnant. Gallbladder surgically absent. Pancreas: Mild atrophy of the pancreatic body and tail. Focal dilatation of the pancreatic duct in the pancreatic head, where it measures 6 mm in diameter (series 4 image 15). No peripancreatic inflammatory change or fluid collection. Spleen: Normal. Adrenal glands: Normal. Kidneys: Normal. Bowel: Normal. Peritoneum: No free fluid. Vasculature: IVC mildly flattened, possibly related to mild hypovolemia. Aorta normal in course and caliber. Lymph nodes: No enlarged lymph nodes in the abdomen. Abdominal wall: Normal. Musculoskeletal: Mild scoliotic curvature of the thoracolumbar junction. IMPRESSION: 1. No evidence of pancreatitis. Focal pancreatic dilatation limited to the pancreatic head without gross evidence of an obstructing mass allowing for noncontrast technique. This could relate to a benign stricture of the major papilla or represent sequela of prior pancreatitis. 2. Intrahepatic and extrahepatic biliary duct dilatation likely relates to the patient's age and a reservoir effect in the post cholecystectomy state. Differential considerations also include benign stricture at the major papilla given the absence of an obstructing mass or calculus. Electronically signed by: Surya Brown M.D. 03/18/2017 9:23 PM Dictated Date/Time: 03/18/2017 9:13 PM
[2017-03-18] MEDS ORDERED: GADAVIST IV PRN (21:45)
--- NOTE | 2017-03-18 21:51 | DIAGNOSTIC IMAGING REPORT ---
ABDOMEN COMBO CLINICAL HISTORY: 81 years-old Male presenting with imaging of the pancreas for pancreatitis. TECHNIQUE: Multisequence, multiplanar MR imaging of the abdomen was performed before and after the administration of intravenous contrast. IV contrast: 7 mL of Gadavist. COMPARISON: MRCP and CT performed the same day. FINDINGS: Localizer images: Unremarkable. Lung bases: Lung bases clear. No pericardial or pleural effusion. Liver: Normal morphology. No suspicious liver lesion. Patent hepatic vasculature. Biliary: Mild biliary ductal dilatation as previously described with smooth tapering to the pancreatic head. No obstructing mass or calculus. Gallbladder surgically absent. Pancreas: Focal mild dilatation of the pancreatic duct the level of the pancreatic head. No pancreatic mass. Mild atrophy of the pancreatic body and tail. Normal signal intensity of the pancreatic parenchyma. No peripancreatic fat stranding or fluid collections. Spleen: Normal. Adrenal glands: Normal. Kidneys: Normal. Bowel: Normal. No bowel obstruction. Peritoneum: No free fluid. Vasculature: Aorta and IVC patent. Lymph nodes: No lymphadenopathy in the abdomen. Abdominal wall: Normal. Osseous structures: Levoscoliotic curvature of the lumbar spine. Associated degenerative change. IMPRESSION: 1. Mild apparent hepatic duct dilatation in the pancreatic head is likely nonsignificant. No obstructing mass or calculus. No evidence of pancreatitis. 2. Mild biliary ductal dilatation likely relates to the patient's age and a reservoir effect in the postcholecystectomy setting. 3. No acute intra-abdominal pathology. Electronically signed by: Surya Brown M.D. 03/18/2017 9:50 PM Dictated Date/Time: 03/18/2017 9:41 PM
[2017-03-19] VITALS: BP 128/73; PULSE 57; TEMP 36.5; O2SAT 97
[2017-03-19] MEDS: LACTATED RINGER'S 1000ML 1,000 ML IV SCH ×4 (01:44→20:42)
[2017-03-19] MEDS ORDERED: NURSING VERBAL MED ORDER ONE (03:15)
[2017-03-19 04:06] VITALS: BP 129/72; PULSE 64; TEMP 36.7; O2SAT 98
[2017-03-19] MEDS: RANITIDINE IV 50 MG in DEXTROSE 5% 100ML 100 ML IV SCH ×2 (05:56→14:32)
[2017-03-19 07:22] VITALS: BP 102/59; PULSE 57; TEMP 36.5; O2SAT 97
[2017-03-19] MEDS: INSULIN ASPART 100 UNITS/ML 3 ML PEN SC SCH ×5 (07:40→21:00)
[2017-03-19] MEDS: GABAPENTIN 300 MG CAP PO SCH ×3 (08:05→20:44)
[2017-03-19] MEDS: GABAPENTIN 100 MG CAP PO SCH ×3 (08:06→20:44)
[2017-03-19] MEDS: ENOXAPARIN 40 MG/0.4 ML SYR SQ SCH (08:06)
[2017-03-19 08:48] LABS: BUN/CREATININE RATIO 10.5 (10-20); CALCIUM 8.1 mg/dl (8.5-10.1); CREATININE 1.2 mg/dl (0.60-1.40)
--- NOTE | 2017-03-19 11:37 | Gastroenterology Progress Note ---
Progress Note Date of Service: Mar 19, 2017 Subjective Pt evaluation today including: conversation w/ patient, physical exam, chart review, lab review, review of studies, review of inpatient medication list Pt tolerated CL diet well, denies any n/v, abd pain. BM today, formed, no rectal bleeding. Lipase normalized to 194, LFTs trending down. Review of Systems Constitutional: No fever, No chills Respiratory: No cough, No shortness of breath Cardiac: No chest pain Abdomen: No pain, No nausea, No vomiting, No GI bleeding Medications Current Inpatient Medications Medications (Trade) Dose Ordered Sig/Kenny Route Start Time Stop Time Status Last Admin Dose Admin Ranitidine HCl 50 mg/Dextrose 102 ml @ 200 mls/hr Q8H IV 03/18/17 14:00 04/17/17 13:59 03/19/17 05:56 200 MLS/HR Enoxaparin Sodium (Lovenox Inj) 40 mg Q24H SQ 03/18/17 07:00 04/17/17 06:59 03/19/17 08:06 40 MG Gabapentin (Neurontin Cap) 100 mg TID PO 03/18/17 09:00 04/17/17 08:59 03/19/17 08:06 100 MG Gabapentin (Neurontin Cap) 300 mg TID PO 03/18/17 09:00 04/17/17 08:59 03/19/17 08:05 300 MG Lorazepam (Ativan Tab) 0.5 mg DAILY PRN PO 03/18/17 02:30 04/17/17 02:29 Promethazine HCl 12.5 mg/Sodium Chloride 50.5 ml @ 204 mls/hr Q6H PRN IV 03/18/17 02:45 04/17/17 02:44 03/18/17 04:49 204 MLS/HR Ondansetron HCl (Zofran Inj) 4 mg Q4H PRN IV 03/18/17 06:30 04/17/17 02:29 Glucose (Glucose 40% Gel) 15-30 GRAMS 15 GRAMS... UD PRN PO 03/18/17 10:00 04/17/17 09:59 03/18/17 20:00 5 GM Glucose (Glucose Chew Tab) 4-8 Tablets 4 Tabl... UD PRN PO 03/18/17 10:00 04/17/17 09:59 Dextrose (Dextrose 50% 50ML Syringe) 25-50ML OF 50% DW IV FOR... UD PRN IV 03/18/17 10:00 04/17/17 09:59 Glucagon (Glucagon Inj) 1 mg UD PRN SQ 03/18/17 10:00 04/17/17 09:59 Lactated Ringer's 1,000 ml @ 125 mls/hr Q8H IV 03/18/17 10:45 04/17/17 10:44 03/19/17 06:32 200 MLS/HR Hydromorphone HCl (Dilaudid Inj) 0.5 mg Q4 PRN IV 03/18/17 10:45 04/01/17 10:44 Gadobutrol (Gadavist) 7 mmol UD PRN IV 03/18/17 21:45 03/22/17 21:44 Insulin Aspart (novoLOG ASPART) SLIDING SCALE ACHS SC 03/19/17 06:30 04/18/17 06:29 Objective Vital Signs Date Time Temp Pulse Resp B/P (MAP) Pulse Ox O2 Delivery O2 Flow Rate FiO2 03/19/17 08:10 Room Air 03/19/17 07:22 36.5 57 16 102/59 (73) 97 Room Air 03/19/17 04:06 36.7 64 18 129/72 (91) 98 Room Air 03/19/17 00:00 Room Air 03/19/17 00:00 36.5 57 16 128/73 (91) 97 Room Air 03/18/17 16:00 Room Air 03/18/17 15:16 36.5 57 18 136/71 (92) 99 Room Air Physical Exam General Appearance: WD/WN, no apparent distress Eyes: normal inspection, PERRL, EOMI Neck: supple, no JVD, trachea midline Respiratory/Chest: normal breath sounds, no respiratory distress, no accessory muscle use Cardiovascular: regular rate, rhythm, no gallop, no murmur Abdomen: normal bowel sounds, non tender, soft Extremities: normal inspection, no pedal edema, no calf tenderness Neurologic/Psych: alert, normal mood/affect, oriented x 3 Skin: normal color, no jaundice, no rash Laboratory Results Last 24 Hours Test 03/18/17 12:25 03/18/17 17:53 03/18/17 18:56 03/19/17 00:08 Bedside Glucose 107 mg/dl 83 mg/dl 76 mg/dl 173 mg/dl Test 03/19/17 07:37 03/19/17 07:56 Bedside Glucose 99 mg/dl Sodium Level 145 mmol/L Potassium Level 4.0 mmol/L Chloride Level 109 mmol/L Carbon Dioxide Level 34 mmol/L Anion Gap 2.0 mmol/L Blood Urea Nitrogen 13 mg/dl Creatinine 1.20 mg/dl Est Creatinine Clear Calc Drug Dose 48.6 ml/min Estimated GFR () 65.8 Estimated GFR (Non- 56.8 BUN/Creatinine Ratio 10.5 Random Glucose 115 mg/dl Calcium Level 8.1 mg/dl Total Bilirubin 0.9 mg/dl Direct Bilirubin 0.2 mg/dl Aspartate Amino Transf (AST/SGOT) 73 U/L Alanine Aminotransferase (ALT/SGPT) 121 U/L Alkaline Phosphatase 83 U/L Total Protein 5.9 gm/dl Albumin 2.9 gm/dl Lipase 194 U/L Assessment and Plan Pt is a 81 y/o male admitted w pancreatitis, Lipase elevated to 1900s, LFTs also elevate: AST 357, ALT 198, normal Tbili and alk phos. He is s/p cholecystectomy, no ETOH abuse, no family hx of autoimmune disease/ pancreatitis. Triglyceride 150 in October. MRI/MRCP w/o evidence of CBD obstruction, pancreatic duct was 6mm at head area, CBD 10mm. He is clinically doing well, tolerating CL diet, w/o fever, chills, abd pain, n/ v, had BM this AM PLANS: - FL diet, advance as tolerated to low fat diet - Decrease LR to 125ml/hr - OK for DC from GI standpoint either end of day or tomorrow morning if clinically doing well still. - Would recommend f/u at GI clinic w Dr. Herron in 1 month's time to determine if EUS eval for dilated pancreatic duct is needed. I have seen, examined, and agree with the plan as outlined above by IMMANUEL Antony. -MRCP without PD stricture -MRI without Mass -Clinically improved -LFT"s have improved.
--- NOTE | 2017-03-19 12:42 | Family Medicine Progress Note ---
Progress Note Date of Service Mar 19, 2017. Subjective Pt evaluation today including: conversation w/ patient, physical exam, chart review, lab review, review of studies Pain: No reported this morning Voiding: no voiding problems, no incontinence The patient is resting comfortably in bed this morning with no acute complaints overnight. He states that he is no longer having any epigastric pain, and was able to sleep comfortably overnight. The patient does appear nervous about restarting his diet, because during his previous episode of pancreatitis when he resumed a regular diet he had epigastric pain immediately upon discharge. He denies any fever, chills, nausea, vomiting, lack of appetite, or any other acute complaints. Constitutional: No fever, No chills Respiratory: No cough, No shortness of breath Cardiovascular: No chest pain, No palpitations Abdomen: No pain, No nausea, No vomiting, No diarrhea Male : No dysuria Medications Current Inpatient Medications Medications (Trade) Dose Ordered Sig/Kenny Route Start Time Stop Time Status Last Admin Dose Admin Ranitidine HCl 50 mg/Dextrose 102 ml @ 200 mls/hr Q8H IV 03/18/17 14:00 04/17/17 13:59 03/19/17 05:56 200 MLS/HR Enoxaparin Sodium (Lovenox Inj) 40 mg Q24H SQ 03/18/17 07:00 04/17/17 06:59 03/19/17 08:06 40 MG Gabapentin (Neurontin Cap) 100 mg TID PO 03/18/17 09:00 04/17/17 08:59 03/19/17 08:06 100 MG Gabapentin (Neurontin Cap) 300 mg TID PO 03/18/17 09:00 04/17/17 08:59 03/19/17 08:05 300 MG Lorazepam (Ativan Tab) 0.5 mg DAILY PRN PO 03/18/17 02:30 04/17/17 02:29 Promethazine HCl 12.5 mg/Sodium Chloride 50.5 ml @ 204 mls/hr Q6H PRN IV 03/18/17 02:45 04/17/17 02:44 03/18/17 04:49 204 MLS/HR Ondansetron HCl (Zofran Inj) 4 mg Q4H PRN IV 03/18/17 06:30 04/17/17 02:29 Glucose (Glucose 40% Gel) 15-30 GRAMS 15 GRAMS... UD PRN PO 03/18/17 10:00 04/17/17 09:59 03/18/17 20:00 5 GM Glucose (Glucose Chew Tab) 4-8 Tablets 4 Tabl... UD PRN PO 03/18/17 10:00 04/17/17 09:59 Dextrose (Dextrose 50% 50ML Syringe) 25-50ML OF 50% DW IV FOR... UD PRN IV 03/18/17 10:00 04/17/17 09:59 Glucagon (Glucagon Inj) 1 mg UD PRN SQ 03/18/17 10:00 04/17/17 09:59 Lactated Ringer's 1,000 ml @ 125 mls/hr Q8H IV 03/18/17 10:45 04/17/17 10:44 03/19/17 12:15 125 MLS/HR Hydromorphone HCl (Dilaudid Inj) 0.5 mg Q4 PRN IV 03/18/17 10:45 04/01/17 10:44 Gadobutrol (Gadavist) 7 mmol UD PRN IV 03/18/17 21:45 03/22/17 21:44 Insulin Aspart (novoLOG ASPART) SLIDING SCALE ACHS SC 03/19/17 06:30 04/18/17 06:29 Objective Vital Signs Date Time Temp Pulse Resp B/P (MAP) Pulse Ox O2 Delivery O2 Flow Rate FiO2 03/19/17 08:10 Room Air 03/19/17 07:22 36.5 57 16 102/59 (73) 97 Room Air 03/19/17 04:06 36.7 64 18 129/72 (91) 98 Room Air 03/19/17 00:00 Room Air 03/19/17 00:00 36.5 57 16 128/73 (91) 97 Room Air 03/18/17 16:00 Room Air 03/18/17 15:16 36.5 57 18 136/71 (92) 99 Room Air Physical Exam General Appearance: WD/WN, no apparent distress Eyes: normal inspection, sclerae normal Neck: supple, no carotid bruits Respiratory/Chest: chest non-tender, lungs clear, normal breath sounds Cardiovascular: regular rate, rhythm, no edema, no gallop Abdomen: normal bowel sounds, non tender, soft Extremities: normal range of motion, no calf tenderness Neurologic/Psychiatric: alert, normal mood/affect, oriented x 3 Laboratory Results Results Past 24 Hours Test 03/18/17 17:53 03/18/17 18:56 03/19/17 00:08 03/19/17 07:37 Range/Units Bedside Glucose 83 76 173 99 70-99 mg/dl Test 03/19/17 07:56 03/19/17 11:39 Range/Units Sodium Level 145 136-145 mmol/L Potassium Level 4.0 3.5-5.1 mmol/L Chloride Level 109 98-107 mmol/L Carbon Dioxide Level 34 21-32 mmol/L Anion Gap 2.0 3-11 mmol/L Blood Urea Nitrogen 13 7-18 mg/dl Creatinine 1.20 0.60-1.40 mg/dl Est Creatinine Clear Calc Drug Dose 48.6 ml/min Estimated GFR () 65.8 Estimated GFR (Non- 56.8 BUN/Creatinine Ratio 10.5 10-20 Random Glucose 115 70-99 mg/dl Calcium Level 8.1 8.5-10.1 mg/dl Total Bilirubin 0.9 0.2-1 mg/dl Direct Bilirubin 0.2 0-0.2 mg/dl Aspartate Amino Transf (AST/SGOT) 73 15-37 U/L Alanine Aminotransferase (ALT/SGPT) 121 12-78 U/L Alkaline Phosphatase 83 45-117 U/L Total Protein 5.9 6.4-8.2 gm/dl Albumin 2.9 3.4-5.0 gm/dl Lipase 194 73-393 U/L Bedside Glucose 101 70-99 mg/dl Assessment and Plan The patient is an 81-year-old male with a past medical history of chronic pancreatitisthat presented to the ED with abdominal pain. After further evaluation it appears that the patient most likely had an acute on chronic episode of pancreatitis. MRCP performed yesterday evening shows some mild intrahepatic and extrahepatic biliary ductal dilation with some tapering towards the ampulla of Vater. His lab work including lipase, ALP, and AST all appeared to improve overnight. Based on his clinical improvement as well as improvement in laboratory evaluation, we will advance his diet as tolerated and decrease his fluids. As long as patient tolerates advancing diet he will be able to be discharged home. 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 2/2 Morphine and Codeine intake - Lipase improved from 1993 to - AST 73 (357 yesterday), ALT 121 (189 yesterday) - MRCP shows some biliary dilation but no visible obstruction and no signs of acute pancreatitis - Abdominal CT: Chronic pancreatitis with no evidence of acute pancreatitis and no peripancreatic fluid collection - Abdominal US: Common bile duct dilation 10mm - 0.5mg Dilaudid q4h PRN - IV Phenergan for nausea - NPO 2) Chronic Back Pain - Gabapentin 400mg TID 3) Type 2 DM - Diet controlled as outpatient - Insulin Sliding Scale 4) DVT Prophylaxis - Lovenox 5) Code Status - Full Resuscitation 6) Disposition - Discharge patient home once tolerating advanced diet - Follow-up with Dr. yanez in one month Resident Physician Supervision Note: I interviewed and examined the patient. Discussed with Dr. Hernandes and agree with findings and plan as documented in the note. Any exceptions or clarifications are listed here: None Documented By: Daryl Cruz feeling better eating well no pain one episode of diarrhea all other ROS otherwise negative except for as above vitals noted nad breathing unlabored no pallor or icterus recurrent pancreatitis - improving. hopefully home in AM. EUS in ~4-6wks Resident Tracking Resident Involvement: Resident Care Provided Care Provided: Adult Hospital Medicine
[2017-03-19 15:36] VITALS: BP 142/79; PULSE 60; TEMP 36.5; O2SAT 98
[2017-03-19 20:13] VITALS: BP 134/80; PULSE 62; TEMP 36.7; O2SAT 97
[2017-03-20 00:07] VITALS: BP 127/73; PULSE 59; TEMP 36.6; O2SAT 95
[2017-03-20] MEDS: LACTATED RINGER'S 1000ML 1,000 ML IV SCH (04:54)
[2017-03-20] MEDS: INSULIN ASPART 100 UNITS/ML 3 ML PEN SC SCH (06:30)
[2017-03-20] MEDS: GABAPENTIN 100 MG CAP PO SCH (07:46)
[2017-03-20] MEDS: GABAPENTIN 300 MG CAP PO SCH (07:46)
[2017-03-20] MEDS: ENOXAPARIN 40 MG/0.4 ML SYR SQ SCH (07:47)
[2017-03-20 07:48] VITALS: BP 125/74; PULSE 58; TEMP 36.7; O2SAT 94
--- NOTE | 2017-03-20 09:21 | Discharge Instructions ---
Discharge Instructions Date of Service Mar 20, 2017. Admission Reason for Admission: Acute Gastritis, Epigastric Abdominal Pain, Discharge Discharge Diagnosis / Problem: Acute on Chronic Pancreatitis Discharge Goals Goal(s): Decrease discomfort, Diagnostic testing Activity Recommendations Activity Limitations: as noted below Lifting Limitations: gradually increase as tolerated Exercise/Sports Limitations: gradually increase as tolerated Shower/Bathe: no limitations Driving or Machine Use: no limitations . Instructions / Follow-Up Instructions / Follow-Up - You were admitted to the hospital for evaluation and treatment of an acute episode of your chronic pancreatitis - In the hospital when you were treated with Morphine it appeared to exacerbate your pain, and in conjunction with the history that codeine at home made your pain worse, led us to believe that those were triggers for this episode of pancreatitis - Imaging of your pancreas did not show any stones or blockages but the MRI of the pancreas did show some narrowing of the duct leading to your pancreas - We were able to advance your diet and you were tolerating regular food, so after discussion with Gastroenterology we are discharging you home - There are no medications that you will be restarted on, but Dr. Herron would like to follow up with you in 1 month - Dr. Herron may perform a procedure at that time called an Endoscopic Ultrasound or an ERCP (Endoscopic Retrograde Cholangio-Pancreatography) to further evaluate/ treat your recurrent episodes of pancreatitis Dr. Herron Contact Information [address] [place] [address] If you have any issue with insurance coverage for Dr. Herron, another doctor through [facility] that performs the above mentioned procedures is Dr. Norman Austin Contact Information [address] [place] [address] Ibuprofen(Motrin, Advil) may be used for fever or pain. Use 600mg every six hours as needed. Take with food. Avoid using more than 2400mg in a 24 hour period. Do not use 2400mg per day for more than three consecutive days without physician direction. Prolonged inappropriate use can lead to stomach upset or ulcers. (AND/OR) Acetaminophen(Tylenol) may be used for fever or pain. Use 1000mg every six hours as needed. Avoid using more than 4000mg in a 24 hour period. Continue current medications Return to the ER immediately for worsening or persistent abdominal pain, vomiting, fevers, chest pains, difficulty breathing, black or bloody stools, worsening of your condition, or as needed. Follow up with your primary physician in 2-3 days for a recheck of your current condition. Current Hospital Diet Patient's current hospital diet: Low Fat Diet, Diabetes Type 2 Diet Discharge Diet Recommended Diet: Low Fat Diet Pending Studies Studies pending at discharge: no Laboratory Results Hemoglobin A1c Test 03/18/17 11:20 Range/Units Estimated Average Glucose 163 mg/dl Hemoglobin A1c 7.3 H 4.5-5.6 % Medical Emergencies . Who to Call and When: Medical Emergencies: If at any time you feel your situation is an emergency, please call 911 immediately. . Non-Emergent Contact Non-Emergency issues call your: Primary Care Provider . . "Provider Documentation" section prepared by Chaim Hernandes. . VTE Core Measure Inpt VTE Proph given/why not?: Enoxaparin (Lovenox)SQ Resident Tracking Resident Involvement: Resident Care Provided Care Provided: Adult Hospital Medicine
[2017-03-20 09:31] VITALS: BP 125/74; PULSE 58; TEMP 36.7; O2SAT 94
--- NOTE | 2017-03-20 14:05 | Discharge Summary ---
Discharge Summary Date of Service Mar 20, 2017. (Chaim Hernandes MD) Discharge Summary Admission Date: Mar 18, 2017 at 02:34 Discharge Date: Mar 20, 2017 Discharge Disposition: Home Principal Diagnosis: Acute on Chronic Pancreatitis Immunizations: Have You Had Influenza Vaccine: N/A History of Tetanus Vaccine?: Yes History of Pneumococcal: Yes Pneumococcal Date: Mar 02, 2004 History of Hepatitis B Vaccine: No (Chaim Hernandes MD) Medication Reconciliation Continued Medications: Gabapentin (Gabapentin) 300 Mg Cap 300 MG PO TID `TOTAL DOSE IS 400MG PO TID Gabapentin (Gabapentin) 100 Mg Cap 100 MG PO TID `TOTAL DOSE IS 400MG PO TID Lorazepam (Lorazepam) 1 Mg Tab 0.5 MG PO DAILY PRN for Anxiety Polyethylene Glycol 3350 (Miralax) 1 Pow Pow 17 GM PO DAILY Discharge Exam Review of Systems: Constitutional: No fever, No chills, No fatigue Respiratory: No cough, No shortness of breath Cardiovascular: No chest pain, No palpitations Abdomen: + diarrhea, No pain, No nausea, No vomiting Genitourinary - Male: No dysuria Physical Exam: General Appearance: WD/WN, no apparent distress Eyes: normal inspection, sclerae normal Respiratory/Chest: chest non-tender, lungs clear, normal breath sounds Cardiovascular: regular rate, rhythm, no edema, no gallop Abdomen / GI: normal bowel sounds, non tender, soft Neurologic/Psychiatric: alert, normal mood/affect, oriented x 3 (Chaim Hernandes MD) Hospital Course The patient is an 81 year old male with a past medication history of chronic pancreatitis that presented with an episode of epigastric discomfort after taking a codeine tablet at home for his worsening of back pain. In the emergency department he was treated with morphine, which further exacerbated his epigastric pain. His lab work showed a significantly elevated Lipase (1994) and LFTS (AST 357, ALT 189). Abdominal CT revealed chronic pancreatitis with no evidence of acute pancreatitis and no peripancreatic fluid collection, and abdominal US showed a common bile duct dilation of 10mm. At the time we started the patient on Lactated Ringers for hydration, IV phenergan for nausea, and made him NPO for protection of the pancreas. We consulted GI who evaluated the patient in the morning, and after having proper bowel rest overnight with nausea control the patient appeared to significantly improve. GI thought it would be reasonable to order an MRCP and MRI of the pancreas in order to further evaluate the patients acute episode. MRCP revealed mild intrahepatic and extrahepatic biliary ductal dilatation which tapers smoothly to the ampulla of Vater. It appears that the patient was experiencing sphincter of oddi dysfunction with opiate use further exacerbating the pancreatitis. The day after bowel rest the patients LFTs and Lipase drastically improved. The patient had his diet advanced to full liquid and then low fat regular diet. The patient will eb discharged home with instructions to follow up with Dr. Herron in 1 month for possible Endoscopic Ultrasound or ERCP. Total Time Spent: Greater than 30 minutes This includes examination of the patient, discharge planning, medication reconciliation, and communication with other providers. (Chaim Hernandes MD) Resident Physician Supervision Note: I interviewed and examined the patient. Discussed with Dr. Hernandes and agree with findings and plan as documented in the note. Any exceptions or clarifications are listed here: None Documented By: Daryl Cruz feeling better eating well wants to go home. for outpt f/u w GI re EUS ~4-6wks vitals noted nad breathing unlabored no pallor or icterus acute recurrent pancreatitis, improved. home on low fat diet, w 2 episodes without clear provoking factors and with radiology evidence of chronic pancreatitis - anticipate EUS stable for home (Daryl rCuz, D.O.) Discharge Instructions Please refer to the electronic Patient Visit Report (Discharge Instructions) for additional information. (Chaim Hernandes MD) Additional Copies To David Piña M.D. Resident Tracking Resident Involvement: Resident Care Provided Care Provided: Adult Hospital Medicine (Chaim Hernandes MD)
== END 2017-03-20 10:03 | disposition home or self-care (01) | DRG 440 ==
LOC: C.EDB 00:10 → C.MED 02:34 → EDBEDREQ 02:44 → ENRESERV 03:01
PROVIDERS: ADMIT Hospitalist; ATTEND Family Medicine
DX: K85.90 Acute pancreatitis without necrosis or infection, unspecified (principal); G89.29 Other chronic pain; M54.9 Dorsalgia, unspecified; E11.9 Type 2 diabetes mellitus without complications; E78.5 Hyperlipidemia, unspecified; M19.90 Unspecified osteoarthritis, unspecified site; K29.70 Gastritis, unspecified, without bleeding; E78.00 Pure hypercholesterolemia, unspecified; Z90.49 Acquired absence of other specified parts of digestive tract; Z79.899 Other long term (current) drug therapy

== ENCOUNTER → 2017-08-11 | Outpatient (CLI) | payer BC ==
[~2017-08-11] MED LIST changes: +ATV1 PO; +GABA1CAP4 PO; -GABA1CAP5 PO; -LORA-741 PO; +MULT-506 PO; +NRN100 PO; -PEDI1CHW95 PO; -PRED1SUS3 OPL
[2017-08-11 09:54] LABS: ESTIMATED AVERAGE GLUCOSE 160 mg/dl; HA1C FLAG Normal (Normal)
[2017-08-11 10:06] LABS: BLOOD UREA NITROGEN 24 mg/dl (7-18); BUN/CREATININE RATIO 21.4 (10-20); CALCIUM 8.5 mg/dl (8.5-10.1); CARBON DIOXIDE 28 mmol/L (21-32); CHLORIDE 104 mmol/L (98-107); CREATININE 1.11 mg/dl (0.60-1.40); GLUCOSE 152 mg/dl (70-99); POTASSIUM 4.1 mmol/L (3.5-5.1); SODIUM 138 mmol/L (136-145)
[2017-08-11 10:09] LABS: CHOLESTEROL 194 mg/dl (0-200); CHOLESTEROL/HDL RATIO 3.6; HDL CHOLESTEROL 54 mg/dl; LDL CHOLESTEROL CALCULATED 118 mg/dl; TRIGLYCERIDES 110 mg/dl (0-150); VERY LOW DENSITY LIPOPROT CALC 22 mg/dl
== END | disposition home or self-care (01) ==
LOC: C.LAB1850 08:19
PROVIDERS: ATTEND Internal Medicine
DX: E11.9 Type 2 diabetes mellitus without complications (principal)

== ENCOUNTER → 2017-09-26 | Outpatient (CLI) | payer BC ==
--- NOTE | 2017-09-26 14:55 | DIAGNOSTIC IMAGING REPORT ---
SCROTAL ULTRASOUND CLINICAL HISTORY: Groin pain. COMPARISON STUDY: None. TECHNIQUE: Grayscale and color and duplex Doppler sonography of the scrotum was performed. FINDINGS: The right testis measures 4.4 x 2.2 x 3.1 cm and the left measures 4.2 x 2.5 x 2.7 cm. Color flow within each testis is symmetric. There is no testicular mass. Small bilateral hydroceles are noted. The left epididymis is heterogeneous but not hypervascular. There is no evidence for epididymitis. There are small bilateral epididymal head cysts. IMPRESSION: 1. Normal sonographic appearance of the testes. 2. No evidence for epididymitis. Mild heterogeneity of the left epididymis without hypervascularity to suggest epididymitis. Electronically signed by: Aquiles David M.D. 09/26/2017 2:54 PM Dictated Date/Time: 09/26/2017 2:47 PM
== END | disposition home or self-care (01) ==
LOC: C.ULTR 13:33
PROVIDERS: ATTEND Internal Medicine
DX: R10.30 Lower abdominal pain, unspecified (principal)

== ENCOUNTER → 2017-12-02 | Outpatient (CLI) | payer BC ==
[~2017-12-02] MED LIST changes: +GABA-1219 PO; -GABA1CAP4 PO
[2017-12-02 09:54] LABS: HEMOGLOBIN A1C 7.7 % (4.5-5.6)
[2017-12-02 10:21] LABS: ALT/SGPT 30 U/L (12-78); AST/SGOT 26 U/L (15-37); BLOOD UREA NITROGEN 22 mg/dl (7-18); CALCIUM 8.5 mg/dl (8.5-10.1); CARBON DIOXIDE 30 mmol/L (21-32); CREATININE 1.24 mg/dl (0.60-1.40); GLUCOSE 143 mg/dl (70-99); LIPASE 202 U/L (73-393); SODIUM 139 mmol/L (136-145)
[2017-12-02 10:23] LABS: CHOLESTEROL 199 mg/dl (0-200); LDL CHOLESTEROL CALCULATED 116 mg/dl
[2017-12-02 10:43] LABS: CREATININE RANDOM URINE 94.3 mg/dl
== END | disposition home or self-care (01) ==
LOC: C.LAB1850 08:53
PROVIDERS: ATTEND Internal Medicine
DX: E11.9 Type 2 diabetes mellitus without complications (principal); K85.90 Acute pancreatitis without necrosis or infection, unspecified; E78.5 Hyperlipidemia, unspecified

== ENCOUNTER 2019-05-10 12:34 | Inpatient (IN) ==
[2019-05-10] MEDS ORDERED: ASPIRIN CHEW 324 MG PO STA (14:07)
[2019-05-10] MEDS ORDERED: FAMOTIDINE 20MG/5ML IV PUSH IV STA (14:09)
[2019-05-10 14:14] LABS: Basophils # (auto) 0.03 K/uL (0-0.2); Basophils % (auto) 0.7 %; Eosinophils # (auto) 0.02 K/uL (0-0.5); Eosinophils % (auto) 0.5 %; Hematocrit (blood only) 43.2 % (42-52); Hemoglobin 14.4 g/dL (14.0-18.0); Immature Granulocytes # (auto) 0.01 K/uL (0.00-0.02); Immature Granulocytes % (auto) 0.2 %; Lymphocytes # (auto) 1.18 K/uL (1.2-3.4); Lymphocytes % (auto) 27.2 %; Mean Corpuscular Hemoglobin 31.6 pg (25-34); Mean Corpuscular Hgb Conc 33.3 g/dL (32-36); Mean Corpuscular Volume 94.9 fL (80-100); Mean Platelet Volume 9.5 fL (7.4-10.4); Monocytes % (auto) 9.2 %; Neutrophils % (auto) 62.2 %; Platelet Count 163 K/uL (130-400); RDW Coefficient of Variation 13.1 % (11.5-14.5); RDW Standard Deviation 45.7 fL (36.4-46.3); Red Blood Count 4.55 M/uL (4.7-6.1); White Blood Count 4.34 K/uL (4.8-10.8)
--- NOTE | 2019-05-10 14:22 | XRay Report ---
XR chest 1V portable CLINICAL HISTORY: Chest Pain pain COMPARISON STUDY: 01/28/2018 FINDINGS: The bones soft tissues and hemidiaphragms are normal. The cardiomediastinal silhouette is n ormal. The lungs are clear. The pulmonary vasculature is normal. IMPRESSION: Negative chest. The above report was generated using voice recognition software. It may contain grammatical, syntax or spelling errors. Electronically signed by: Jas Haq M.D. 05/10/2019 2:21 PM
[2019-05-10 14:31] LABS: Albumin Level 3.4 gm/dl (3.4-5.0); BUN Creatinine Ratio 18.1 (10-20); Calcium 8.5 mg/dl (8.5-10.1); Creatinine Clr Calc Pharmacy 48.2 ml/min; Est GFR (African American) 63.6; Est GFR (Non-African American) 54.9; Potassium 4.2 mmol/L (3.5-5.1)
[2019-05-10 14:37] LABS: Albumin Globulin Ratio 1.1 (0.9-2); Bilirubin,Total 0.6 mg/dl (0.2-1); Total Protein 6.4 gm/dl (6.4-8.2); Troponin I 0.148 ng/ml (0-0.045)
[2019-05-10 14:39] LABS: INR 1.1 (0.9-1.1); Partial Thromboplastin Ratio 0.9; Partial Thromboplastin Time 23.4 Seconds (21.0-31.0); Prothrombin Time 10.9 Seconds (9.0-12.0)
[2019-05-10] MEDS ORDERED: NITROGLYCERIN SL 0.4 MG/TAB TAB SL PRN ×2 (14:40→17:47)
[2019-05-10] MEDS ORDERED: HEPARIN SODIUM/DEXTROSE 25,000 UNITS/500 ML BAG IV SCH (14:45)
[2019-05-10] MEDS ORDERED: Heparin IV Low Dose WITH Bolus IV STA (14:46)
[2019-05-10] MEDS ORDERED: HEPARIN 25000 UNIT/500 ML D5W IV ONE (15:22)
[2019-05-10] MEDS ORDERED: HEPARIN SOD 5,000 UNIT/0.5 ML VIAL ONE (15:22)
[2019-05-10] MEDS: HEPARIN SODIUM/DEXTROSE 25,000 UNITS/500 ML BAG IV SCH ×2 (15:55→22:50)
--- NOTE | 2019-05-10 15:55 | Cardiology Consultation ---
Date of Consultation May 10, 2019 Assessment & Plan (1) Chest pain: The patient has experienced chest discomfort which has persisted for greater than 24 hours. Fortunately, there are no acute EKG changes, and his troponin is only mildly elevated thus far. Do not feel that this represents an acute coronary syndrome. Would continue to track troponins and EKGs. Would perform an echocardiogram. Further recommendations depending on his clinical course. (2) Elevated troponin: Mild elevation up to 0.148. We will continue to follow. (3) Dyslipidemia: The patient does not take statins, but follows a heart healthy diet. History of Present Illness History of Present Illness Mr. Lyons is an 83-year-old male admitted earlier today with a chest pain syndrome. Discussed lesions were to assist in his management. Patient claims he was in his usual state of health until yesterday afternoon. He developed a constant substernal chest pressure without associated symptoms such as shortness of breath, nausea, vomiting, or diaphoresis. There was no change in the intensity of his discomfort with physical activity. He did note some exertional dyspnea over the last 4-5 days. Patient is typically quite vigorous on a daily basis caring for his home and property. He has never experienced exertional angina pectoris. He further denies syncope, presyncope, PND, orthopnea, palpitations, lower extremity edema, and claudication. The patient presented the emergency room for further care. Initial troponin was mildly elevated at 0.148, but his EKG is normal. The patient has had long-standing problem with frequent eructation. Currently, the patient is is resting comfortably but still notes a mild substernal chest pressure, 1/10 on a pain scale. Past medical and surgical history 1. Hypercholesterolemia 2. Diabetes mellitus 3. GERD 4. Year old will bowel syndrome 5. Spinal stenosis 6. Scoliosis 7. DJD 8. Anxiety/depression 9. History pancreatitis 10. BPH 11. 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 Allergies Allergy/AdvReac Type Severity Reaction Status Date / Time morphine Allergy Unknown confusion Verified 05/10/19 13:47 codeine Allergy Verified 05/10/19 13:47 metformin Allergy Verified 05/10/19 13:47 sertraline AdvReac Nausea Verified 05/10/19 13:47 Home Medications Home Medications Medication Instructions Recorded Confirmed Type lorazepam 1 mg tablet 1 mg PO DAILY PRN #90 tab 03/22/19 05/10/19 History polyethylene glycol 3350 17 17 gm PO QAM gm 04/05/19 05/10/19 History gram/dose oral powder gabapentin 300 mg capsule 300 mg PO TID 04/08/19 05/10/19 History Patient History Medical History Gastritis GERD (gastroesophageal reflux disease) (Chronic) Type 2 diabetes mellitus (Acute) Spinal stenosis (Acute) Scoliosis (Acute) Irritable bowel syndrome (Acute) Dyslipidemia (Acute) Depression with anxiety (Acute) Chronic prostatitis (Acute) Bulging lumbar disc (Acute) Arthritis (Acute) Pancreatitis (Acute) Surgical History Hx of cholecystectomy Family History Father Cancer Cardiac disorder Myocardial infarction Mother Multiple sclerosis, transitional Social History Preferred Language: Welsh Visual Impairment: No Limitations Hearing Ability: Normal Beliefs That Will Affect Care: None marital status: Current Living Situation: Spouse current occupational status: retired Feels Safe at Home: Yes Smoking Status: Never smoker Hx Alcohol Use: No Hx Substance Use: No Childhood Exposure to Second-Hand Smoke: Yes Dental Care, Regularly: Yes Physical Activity Frequency: Daily Seatbelt Use: always Sunscreen Use: Yes Physical Exam Physical Exam: In general this is a well-developed well-nourished white male in no acute distress. HEENT exam is negative. Neck is supple with full carotid upstrokes. There are no carotid bruits. Jugular venous pressure is flat at 90. There is no thyromegaly. Cardiovascular exam reveals a regular rhythm with a normal S1 and S2. No S3, S4, or murmurs are noted. Lungs are clear without rales, rhonchi, or wheezes. Abdomen is soft and nontender without bruits. Extremities reveal intact radial artery and posterior tibial pulses bilaterally. There is no peripheral edema. Results & Data Vital Signs (Past 12 Hours) Vital Signs Temp Pulse Pulse Resp BP BP Pulse Ox 05/10/19 15:39 80 18 149/91 H 96 05/10/19 14:44 74 18 94 05/10/19 14:07 99 05/10/19 14:00 76 17 98 05/10/19 12:41 36.5 C 80 16 129/73 97 Laboratory Results CBC notes a hemoglobin of 14.4, hematocrit 43.2, white count 4.34, platelet count 275211. Electrolytes show sodium of 141, potassium 4.2, chloride 106, bicarb 29, BUN 22, creatinine 1.22, glucose of 107. Troponin I level 0.148. Diagnostic Findings EKG notes normal sinus rhythm with a PAC. No other abnormalities. Chest x-ray shows no acute disease. PG Care Time/CCT Total # of Minutes Spent Total Time Spent with Patient: Total time spent is greater than 50% in coordination of care (as documented) at patient's floor/unit and/or counseling patient:
[2019-05-10] MEDS ORDERED: GABAPENTIN 300 MG CAP PO STA (16:50)
[2019-05-10] MEDS ORDERED: ACETAMINOPHEN 325 MG TAB PO PRN (17:47)
[2019-05-10] MEDS ORDERED: ALUMINUM/MAGNESIUM SUSP 30 ML UDC PO PRN (17:47)
[2019-05-10] MEDS ORDERED: MAGNESIUM HYDROXIDE SUSP 30 ML UDC PO PRN (17:47)
[2019-05-10] MEDS ORDERED: ZOLPIDEM TARTRATE 5 MG TAB PO PRN (17:47)
[2019-05-10] MEDS ORDERED: ONDANSETRON INJ 2 MG/ML 2 ML VIAL IV PRN (17:47)
[2019-05-10] MEDS ORDERED: POLYETHYLENE (MIRALAX) 17 GM PACK PO PRN (17:47)
[2019-05-10] MEDS ORDERED: LORazepam 1 MG TAB PO PRN (17:52)
--- NOTE | 2019-05-10 18:01 | History & Physical Report ---
Date of Service May 10, 2019 Assessment & Plan (1) ACS (acute coronary syndrome): Elevated troponin/non-STEMI Currently chest pain-free Admit to telemetry Serial cardiac enzymes Empiric aspirin and Lipitor Check hemoglobin A1c and lipid stenosis by risk factors We will consider consulting battery parts assembler, Dr. Minh Nowak is remote control assembler IV fluid hydration N.p.o. from midnight (2) Elevated troponin: As above (3) Gastritis: Empiric Pepcid x 1/Tums Protonix IV (4) Type 2 diabetes mellitus: Diet controlled We will check hemoglobin A1c (5) Pancreatitis: Lipase was minimally elevated 455 We will monitor lipase in a.m. Unlikely the cause of his pain due to location and character of pain But if lipase remains chronically elevated that we will prominent work-up to rule out any underlying pathology that might be chronic (6) NSTEMI (non-ST elevation myocardial infarction): As mentioned above History of Present Illness 83 years old man with no significant past medical history except for acute pancreatitis in the past, diabetes mellitus that is controlled he was in his regular state of health until 3 days prior to admission when he developed GERD, some bloating, heartburn and frequent belching. Patient symptoms progressively got worse until the day of admission where he started to develop retrosternal tightness, he said he feels like there is a big stone on his chest, presented to the ED at that time the retrosternal pressure was rated 6/10. While in the waiting room sternal pain got worse. Immediately after taking aspirin and Pepcid he said it improved to about 4 out of 10 then as soon as he started the heparin drip the pain was gone. During that time he denies any diaphoresis or dizziness or shortness of breath no associated symptoms, the pain did not go to his left shoulder or neck or go, stays localized in the substernal area. Pain seems to be different from the pain he had when he had that episode of acute pancreatitis many years ago. No associated symptoms, no relieving or aggravating factors Primary Care Provider: David Piña MD Allergies Allergy/AdvReac Type Severity Reaction Status Date / Time morphine Allergy Unknown confusion Verified 05/10/19 13:47 codeine Allergy Verified 05/10/19 13:47 metformin Allergy Verified 05/10/19 13:47 sertraline AdvReac Nausea Verified 05/10/19 13:47 Home Medications Home Medications Medication Instructions Recorded Confirmed Type lorazepam 1 mg tablet 1 mg PO DAILY PRN #90 tab 03/22/19 05/10/19 History polyethylene glycol 3350 17 17 gm PO QAM gm 04/05/19 05/10/19 History gram/dose oral powder gabapentin 300 mg capsule 300 mg PO TID 04/08/19 05/10/19 History Past Med/Surg History Medical History Gastritis GERD (gastroesophageal reflux disease) (Chronic) Type 2 diabetes mellitus (Acute) Spinal stenosis (Acute) Scoliosis (Acute) Irritable bowel syndrome (Acute) Dyslipidemia (Acute) Depression with anxiety (Acute) Chronic prostatitis (Acute) Bulging lumbar disc (Acute) Arthritis (Acute) Pancreatitis (Acute) Surgical History Hx of cholecystectomy Family History Father Cancer Cardiac disorder Myocardial infarction Mother Multiple sclerosis, transitional Social History Preferred Language: [place] Visual Impairment: No Limitations Hearing Ability: Normal Beliefs That Will Affect Care: None marital status: Current Living Situation: Spouse current occupational status: retired Feels Safe at Home: Yes Smoking Status: Never smoker Hx Alcohol Use: No Hx Substance Use: No Childhood Exposure to Second-Hand Smoke: Yes Dental Care, Regularly: Yes Physical Activity Frequency: Daily Seatbelt Use: always Sunscreen Use: Yes Review of Systems Review of Systems: Review of system Constitutional: No fever / no chills / no sweats / no weakness / no fatigue Eyes: no blurring of vision / no eye pain / no discharge / no redness ENT: no hearing loss / no epistaxis /no swallowing problems Respiratory: no cough / no wheezing / no SOB / no hemoptysis Cardiovascular: Chest pain as mentioned in HPI/ no lower extremity edema / no palpitation Abdomen: no pain / no nausea / no vomiting / no constipation Musculoskeletal: no joint pain / no muscle pain / no joint swelling Genitourinary: no dysuria / no incontinence / no urinary retention Neurologic: no focal weakness / no numbness/tingling / no ataxia Psychiatric: no depression symptoms / no anxiety / no insomnia Endocrine: no excessive thirst / no excessive urination Hematologic: no abnormal bleeding / no bruising / no LN swelling Skin: No rash / no pallor Physical Exam Physical Exam: Physical examination General patient appears to be comfortable, not in acute distress HEENT: Atraumatic , normocephalic /no jaundice /no pallor /anicteric /no dry mucous membrane /normal external ear inspection Neck: Supple /no swelling /central trach Heart: S1/S2 normal/regular rate and rhythm/no gallop /no rub /no murmur Lungs: Clear to auscultation bilaterally/normal chest with expansion/no rhonchi/no rales/no wheezing/no use of accessory muscles of respiration Abdomen: Soft/nontender/no guarding/no rebound/no organomegaly/no pulsatile mass Musculoskeletal: No swelling/no edema/no tenderness/normal range of motion Neuro exam: Awake alert oriented 3/cranial nerves II through XII appear to be intact/sensation intact/moves all extremities/no abnormal movements Psychiatric evaluation: No depressed mood/normal affect Skin: No rash on exposed skin area/no erythema Extremity: Normal pulse/no pitting edema/no clubbing or cyanosis Endocrine/lymphatic: No obvious lymphadenopathy /no lymphedema Results & Data Vital Signs (Past 12 Hours) Vital Signs Temp Pulse Pulse Resp BP BP Pulse Ox 05/10/19 17:20 73 18 05/10/19 17:10 71 16 99 05/10/19 17:00 69 20 123/73 99 05/10/19 16:50 66 19 98 05/10/19 16:47 70 18 130/71 99 05/10/19 16:45 73 20 130/71 99 05/10/19 16:41 78 18 05/10/19 16:30 73 19 98 05/10/19 16:20 70 15 92 05/10/19 16:10 76 19 97 05/10/19 16:06 72 18 138/69 98 05/10/19 16:00 70 15 138/69 99 05/10/19 15:59 70 18 136/70 96 05/10/19 15:50 79 17 100 05/10/19 15:41 76 20 100 05/10/19 15:39 79 80 17 149/91 H 149/91 H 100 05/10/19 15:30 72 14 99 05/10/19 15:20 77 17 99 05/10/19 15:10 76 15 98 05/10/19 15:00 78 16 98 05/10/19 14:50 71 13 05/10/19 14:48 75 24 149/75 H 05/10/19 14:44 74 18 94 05/10/19 14:40 67 15 05/10/19 14:30 71 19 100 05/10/19 14:20 71 18 05/10/19 14:10 75 21 05/10/19 14:07 99 05/10/19 14:01 68 20 100 05/10/19 14:00 76 17 98 05/10/19 13:11 73 17 99/78 L 98 05/10/19 12:41 36.5 C 80 16 129/73 97 Code Status & VTE Plan VTE Prophylaxis Plan VTE Prophylaxis will be ordered: Yes PG Care Time/CCT Total # of Minutes Spent Total Time Spent with Patient: 35 minutes total time spent is greater than 50% in coordination of care (as documented) at patient's floor/unit and/or counseling patient/family discussion of care with nursing staff
[2019-05-10 18:12] LABS: D Dimer 490 ug/L FEU (0-500)
--- NOTE | 2019-05-10 19:10 | Emergency Department Note ---
Entered by Silvia Pedraza acting as a scribe for History of Present Illness General Chief complaint: Cardiac Assessment Stated complaint: CHEST DISCOMFORT Source: patient Mode of arrival: ambulatory Limitations: no limitations History of Present Illness Provider complaint: Chest discomfort Onset (ago): day(s) (a couple of days ago) Location: chest (sternum) Pain Consistency: + other (worsening) Current Pain Intensity: 3 (3-4) Quality: + other (discomfort, pressure) Relieved By: + none; not by eating Exacerbated By: + other (lying down); not by eating Associated symptoms: no loss of appetite Treatments prior to arrival: none The patient is an 83 year old male with a history of type 2 diabetes, GERD, robbie ritis, and pancreatitis who presents to the Emergency Room with complaints of worsening chest discomfort starting a couple of days ago. The patient reports that he noticed pressure on his sternum a couple of days ago and thought that it might be secondary to GERD. However, he states that relieving his gas does not relieve this pressure, which is unusual for him. He notes that his discomfort worsens with lying down and does not change with eating. He currently rates his discomfort a 3 to 4/10. The patient recalls that he has been having normal bowel movement, and his adds that the patient has experienced no loss of appetite. The patient reports that he is generally active and has recently been lifting rocks in his yard. He denies any alcohol use. He states that he has never had a stress test performed and does not take any proton pump inhibitors and medication for gastritis. Home Medications Home Medications Medication Instructions Recorded Confirmed Type lorazepam 1 mg tablet 1 mg PO DAILY PRN #90 tab 03/22/19 05/10/19 History polyethylene glycol 3350 17 17 gm PO QAM gm 04/05/19 05/10/19 History gram/dose oral powder gabapentin 300 mg capsule 300 mg PO TID 04/08/19 05/10/19 History Allergies Allergy/AdvReac Type Severity Reaction Status Date / Time morphine Allergy Unknown confusion Verified 05/10/19 13:47 codeine Allergy Verified 05/10/19 13:47 metformin Allergy Verified 05/10/19 13:47 sertraline AdvReac Nausea Verified 05/10/19 13:47 Past Med/Surg History Medical History Gastritis GERD (gastroesophageal reflux disease) (Chronic) Type 2 diabetes mellitus (Acute) Spinal stenosis (Acute) Scoliosis (Acute) Irritable bowel syndrome (Acute) Dyslipidemia (Acute) Depression with anxiety (Acute) Chronic prostatitis (Acute) Bulging lumbar disc (Acute) Arthritis (Acute) Pancreatitis (Acute) Surgical History Hx of cholecystectomy Family History Father Cancer Cardiac disorder Myocardial infarction Mother Multiple sclerosis, transitional Social History Preferred Language: Divehi Communication Ability: Effective Visual Impairment: No Limitations Hearing Ability: Normal 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 and A total of 10 systems reviewed and were otherwise negative Physical Exam Vital Signs Vital Signs - 24 hr 05/10/19 12:41 05/10/19 13:11 05/10/19 14:00 Temperature 36.5 C Temperature Source Oral Sepsis Recent Fever Within 48 Hours No Sepsis New/Unexplained Change in Mental Status No Sepsis Action Taken by Nursing No Action Required Pulse Rate 80 73 76 Pulse Rate [Left] Pulse Rate from SpO2 Sensor 70 Respiratory Rate 16 17 17 Respiratory Effort / Characteristics Blood Pressure 129/73 99/78 L Blood Pressure [Right Arm] Blood Pressure Mean 91 85 Blood Pressure Mean [Right Arm] Blood Pressure Position [Right Arm] Pulse Oximetry 97 98 98 Oxygen Delivery Method Room Air Room Air 05/10/19 14:01 05/10/19 14:07 05/10/19 14:10 Temperature Temperature Source Sepsis Recent Fever Within 48 Hours Sepsis New/Unexplained Change in Mental Status Sepsis Action Taken by Nursing Pulse Rate 68 75 Pulse Rate [Left] Pulse Rate from SpO2 Sensor 67 Respiratory Rate 20 21 Respiratory Effort / Characteristics Blood Pressure Blood Pressure [Right Arm] Blood Pressure Mean Blood Pressure Mean [Right Arm] Blood Pressure Position [Right Arm] Pulse Oximetry 100 99 Oxygen Delivery Method Room Air 05/10/19 14:20 05/10/19 14:30 05/10/19 14:40 Temperature Temperature Source Sepsis Recent Fever Within 48 Hours Sepsis New/Unexplained Change in Mental Status Sepsis Action Taken by Nursing Pulse Rate 71 71 67 Pulse Rate [Left] Pulse Rate from SpO2 Sensor 65 Respiratory Rate 18 19 15 Respiratory Effort / Characteristics Blood Pressure Blood Pressure [Right Arm] Blood Pressure Mean Blood Pressure Mean [Right Arm] Blood Pressure Position [Right Arm] Pulse Oximetry 100 Oxygen Delivery Method 05/10/19 14:44 05/10/19 14:48 05/10/19 14:50 Temperature Temperature Source Sepsis Recent Fever Within 48 Hours Sepsis New/Unexplained Change in Mental Status Sepsis Action Taken by Nursing Pulse Rate 75 71 Pulse Rate [Left] 74 Pulse Rate from SpO2 Sensor Respiratory Rate 18 24 13 Respiratory Effort / Characteristics Blood Pressure 149/75 H Blood Pressure [Right Arm] Blood Pressure Mean 99 Blood Pressure Mean [Right Arm] Blood Pressure Position [Right Arm] Pulse Oximetry 94 Oxygen Delivery Method Room Air 05/10/19 15:00 05/10/19 15:10 05/10/19 15:20 Temperature Temperature Source Sepsis Recent Fever Within 48 Hours Sepsis New/Unexplained Change in Mental Status Sepsis Action Taken by Nursing Pulse Rate 78 76 77 Pulse Rate [Left] Pulse Rate from SpO2 Sensor 73 76 78 Respiratory Rate 16 15 17 Respiratory Effort / Characteristics Blood Pressure Blood Pressure [Right Arm] Blood Pressure Mean Blood Pressure Mean [Right Arm] Blood Pressure Position [Right Arm] Pulse Oximetry 98 98 99 Oxygen Delivery Method 05/10/19 15:30 05/10/19 15:39 05/10/19 15:41 Temperature Temperature Source Sepsis Recent Fever Within 48 Hours Sepsis New/Unexplained Change in Mental Status Sepsis Action Taken by Nursing Pulse Rate 72 79 76 Pulse Rate [Left] 80 Pulse Rate from SpO2 Sensor 74 79 74 Respiratory Rate 14 17 20 Respiratory Effort / Characteristics Non-Labored Spontaneous Blood Pressure 149/91 H Blood Pressure [Right Arm] 149/91 H Blood Pressure Mean 110 Blood Pressure Mean [Right Arm] 110 Blood Pressure Position [Right Arm] Lying Pulse Oximetry 99 100 100 Oxygen Delivery Method Room Air 05/10/19 15:50 05/10/19 15:59 05/10/19 16:00 Temperature Temperature Source Sepsis Recent Fever Within 48 Hours Sepsis New/Unexplained Change in Mental Status Sepsis Action Taken by Nursing Pulse Rate 79 70 70 Pulse Rate [Left] Pulse Rate from SpO2 Sensor 78 66 64 Respiratory Rate 17 18 15 Respiratory Effort / Characteristics Blood Pressure 136/70 138/69 Blood Pressure [Right Arm] Blood Pressure Mean 92 92 Blood Pressure Mean [Right Arm] Blood Pressure Position [Right Arm] Pulse Oximetry 100 96 99 Oxygen Delivery Method 05/10/19 16:06 05/10/19 16:10 05/10/19 16:20 Temperature Temperature Source Sepsis Recent Fever Within 48 Hours Sepsis New/Unexplained Change in Mental Status Sepsis Action Taken by Nursing Pulse Rate 76 70 Pulse Rate [Left] 72 Pulse Rate from SpO2 Sensor 72 65 Respiratory Rate 18 19 15 Respiratory Effort / Characteristics Non-Labored Spontaneous Blood Pressure Blood Pressure [Right Arm] 138/69 Blood Pressure Mean Blood Pressure Mean [Right Arm] 92 Blood Pressure Position [Right Arm] Lying Pulse Oximetry 98 97 92 Oxygen Delivery Method Room Air 05/10/19 16:30 05/10/19 16:41 05/10/19 16:45 Temperature Temperature Source Sepsis Recent Fever Within 48 Hours Sepsis New/Unexplained Change in Mental Status Sepsis Action Taken by Nursing Pulse Rate 73 78 Pulse Rate [Left] 73 Pulse Rate from SpO2 Sensor 70 Respiratory Rate 19 18 20 Respiratory Effort / Characteristics Non-Labored Spontaneous Blood Pressure Blood Pressure [Right Arm] 130/71 Blood Pressure Mean Blood Pressure Mean [Right Arm] 90 Blood Pressure Position [Right Arm] Lying Pulse Oximetry 98 99 Oxygen Delivery Method Room Air 05/10/19 16:47 05/10/19 16:50 05/10/19 17:00 Temperature Temperature Source Sepsis Recent Fever Within 48 Hours Sepsis New/Unexplained Change in Mental Status Sepsis Action Taken by Nursing Pulse Rate 70 66 69 Pulse Rate [Left] Pulse Rate from SpO2 Sensor 65 66 69 Respiratory Rate 18 19 20 Respiratory Effort / Characteristics Blood Pressure 130/71 123/73 Blood Pressure [Right Arm] Blood Pressure Mean 90 89 Blood Pressure Mean [Right Arm] Blood Pressure Position [Right Arm] Pulse Oximetry 99 98 99 Oxygen Delivery Method 05/10/19 17:10 05/10/19 17:20 Temperature Temperature Source Sepsis Recent Fever Within 48 Hours Sepsis New/Unexplained Change in Mental Status Sepsis Action Taken by Nursing Pulse Rate 71 73 Pulse Rate [Left] Pulse Rate from SpO2 Sensor 71 Respiratory Rate 16 18 Respiratory Effort / Characteristics Blood Pressure Blood Pressure [Right Arm] Blood Pressure Mean Blood Pressure Mean [Right Arm] Blood Pressure Position [Right Arm] Pulse Oximetry 99 Oxygen Delivery Method Vital signs reviewed. General: Well-appearing male, in no significant distress. HEENT: No scleral icterus, PERRLA, neck supple. Atraumatic. Cardiovascular: Regular rate and rhythm, no extra sounds. Pulmonary: Clear to auscultation bilaterally, normal work of breathing. Abdomen: Soft, nontender, nondistended, positive bowel sounds. Musculoskeletal: Atraumatic, no peripheral edema. Mild tenderness to palpation of the sternum which causes belching. Neurologic: Patient awake alert and oriented x 3, full strength in all 4 extremities. Cranial nerves 2 through 12 grossly intact. Skin: Warm, dry, no rash Course 1404: The patient was evaluated in room C1B, and a complete history and physical examination were performed. 1441: I reviewed the patient's case with Dr. Hai Correa Cardiology, [facility]. 1445: [facility] will evaluate the patient for further management. Consultations Consultation #1: I reviewed the patient's case with [facility], [facility] Time: 14:41 Consultation #2: I [facility] the [facility] Khanna will evaluate the patient for further management. Time: 14:45 Administered Medications Aspirin (Ecotrin) 325 mg PO QAM [facility] Stop: 06/10/19 08:59 Last Admin: 05/11/19 09:05 Dose: 325 mg Documented by: [id number] Atorvastatin Calcium (Lipitor) 40 mg PO QAM [facility] Stop: 06/10/19 08:59 Last Admin: 05/11/19 09:05 Dose: 40 mg Documented by: [id number] Gabapentin (Neurontin) 300 mg PO TID [facility] Stop: 06/09/19 20:59 Last Admin: 05/11/19 13:55 Dose: 300 mg Documented by: [id number] Admin: 05/11/19 09:05 Dose: 300 mg Documented by: [id number] Admin: 05/10/19 20:36 Dose: 300 mg Documented by: [id number] Sodium Chloride (Nss 1000ml) 750 mls @ 100 mls/hr IV .Q7H30M [facility] Stop: 05/11/19 20:29 Last Admin: 05/11/19 13:55 Dose: 100 mls/hr Documented by: [id number] Lorazepam (Ativan) 1 mg PO DAILY PRN PRN Reason: Anxiety Stop: 06/09/19 17:51 Last Admin: 05/10/19 22:02 Dose: 1 mg Documented by: [id number] Polyethylene Glycol ([facility]ax Powder Packet) [facility] [place] Stop: 06/10/19 08:59 Last Admin: 05/11/19 09:00 Dose: Not Given Documented by: [id number] Discontinued Medications Adenosine (Adenoscan) Confirm Administered Dose 6 mg IV .STK-MED ONE Stop: 05/11/19 12:14 Last Admin: 05/11/19 12:39 Dose: Not Given Documented by: [id number] Aspirin (Aspirin) 324 mg PO NOW STA Stop: 05/10/19 14:08 Last Admin: 05/10/19 14:20 Dose: 324 mg Documented by: [id number] Clopidogrel Bisulfate (Plavix) 75 mg PO NOW ONE Stop: 05/11/19 13:38 Last Admin: 05/11/19 14:00 Dose: 75 mg Documented by: [id number] Dopamine HCl/Dextrose (Dopamine / D5w (It Program Manager Use Only)) Confirm Administered Dose 400 mg .ROUTE .STK-MED ONE Stop: 05/11/19 12:21 Last Admin: 05/11/19 12:40 Dose: 10 mcg.per.kg Documented by: [id number] Famotidine (Pepcid 20mg Iv Push) 20 mg IV ONE STA Stop: 05/10/19 14:10 Last Admin: 05/10/19 14:20 Dose: 20 mg Documented by: [id number] Fentanyl Citrate (Fentanyl Citrate) Confirm Administered Dose 100 mcg .ROUTE .STK-MED ONE Stop: 05/11/19 10:22 Last Increment: 05/11/19 12:39 Dose: 75 mcg Documented by: [id number] Gabapentin (Neurontin) 300 mg PO NOW STA Stop: 05/10/19 16:51 Last Admin: 05/10/19 17:27 Dose: 300 mg Documented by: [id number] Heparin Sodium (Porcine) (Heparin Sodium (Porcine)) Confirm Administered Dose 5,000 units .ROUTE .STK-MED ONE Stop: 05/10/19 15:23 Last Admin: 05/10/19 15:26 Dose: 4,000 units Documented by: [id number] Cosigned by: [id number] Heparin Sodium (Porcine) (Heparin Iv Bolus (It Program Manager Use Only)) Confirm Admini stered Dose 10,000 units .ROUTE .STK-MED ONE Stop: 05/11/19 10:21 Last Admin: 05/11/19 12:38 Dose: 4,000 units Documented by: [id number] Heparin Sodium/Dextrose () 1 ea IV NOW STA; Protocol Stop: 05/10/19 14:47 Last Admin: 05/10/19 15:33 Dose: Not Given Documented by: [id number] Heparin Sodium/Dextrose (Heparin Sodium/Dextrose) Confirm Administered Dose 25,000 units IV .STK-MED ONE Stop: 05/10/19 15:23 Last Admin: 05/10/19 15:26 Dose: 900 units Documented by: [id number] Cosigned by: [id number] Heparin Sodium/Sodium Chloride (Heparin/Nss 1000 Unit/500ml Flush Bag) Confirm Administered Dose 3,000 units IV .STK-MED ONE Stop: 05/11/19 10:23 Last Admin: 05/11/19 12:39 Dose: 3,000 units Documented by: [id number] Heparin Sodium/Dextrose (Heparin Sodium/Dextrose) 25,000 units in 500 mls @ 18 mls/hr IV .Q24H [facility]; Protocol Stop: 06/09/19 14:59 Last Titration: 05/11/19 14:01 Dose: 0 units/hr, 0 mls/hr Documented by: [id number] Cosigned by: [id number] Titration: 05/11/19 11:00 Dose: 0 units/hr, 0 mls/hr Documented by: [id number] Cosigned by: [id number] Admin: 05/10/19 22:50 Dose: 850 units/hr, 17 mls/hr Documented by: [id number] Cosigned by: [id number] Admin: 05/10/19 15:55 Dose: Not Given Documented by: [id number] Sodium Chloride (Nss 1000ml) 1,000 mls @ 70 mls/hr IV .[id number] [facility] Stop: 06/09/19 17:59 Last Infusion: 05/11/19 12:59 Dose: 0 mls/hr Documented by: [id number] Admin: 05/11/19 09:05 Dose: 70 mls/hr Documented by: [id number] Infusion: 05/11/19 09:05 Dose: 70 mls/hr Documented by: [id number] Admin: 05/10/19 20:35 Dose: 70 mls/hr Documented by: [id number] Midazolam HCl (Versed) Confirm Administered Dose 2 mg .ROUTE .STK-MED ONE Stop: 05/11/19 10:23 Last Admin: 05/11/19 12:39 Dose: 2 mg Documented by: [id number] Nicardipine HCl (Cardene) Confirm Administered Dose 25 mg .ROUTE .STK-MED ONE Stop: 05/11/19 10:22 Last Admin: 05/11/19 12:38 Dose: 25 mg Documented by: [id number] Nitroglycerin/Dextrose (Nitroglycerin/D5w 100 Mcg/Ml 20ml Syringe) Confirm Administered Dose 2,000 mcg .ROUTE .STK-MED ONE Stop: 05/11/19 10:23 Last Admin: 05/11/19 12:39 Dose: 2,000 mcg Documented by: [id number] Medical Decision Making Differential Diagnosis Differential diagnoses includes acute coronary syndrome, pulmonary embolus, aortic dissection, musculoskeletal pain, pneumonia, pleural effusion, pneumothorax, gastritis, peptic ulcer disease, GERD. Medical Records Attestation: I reviewed the patient's medical records. Home Medications Current Medication List: was personally reviewed by me Laboratory Data Attestation: I reviewed the patient's lab results. Result diagrams: 05/11/19 04:44 05/11/19 04:44 Lab Results 05/10/19 05/10/19 05/10/19 Range/Units 14:01 14:01 14:01 WBC 4.34 L (4.8-10.8) K/uL RBC 4.55 L (4.7-6.1) M/uL Hgb 14.4 (14.0-18.0) g/dL Hct 43.2 (42-52) % MCV 94.9 (80-100) fL MCH 31.6 (25-34) pg MCHC 33.3 (32-36) g/dL RDW Std Deviation 45.7 (36.4-46.3) fL RDW Coeff of Lance 13.1 (11.5-14.5) % Plt Count 163 (130-400) K/uL MPV 9.5 (7.4-10.4) fL Immature Gran % (Auto) 0.2 % Neut % (Auto) 62.2 % Lymph % (Auto) 27.2 % [place] % (Auto) 9.2 % Eos % (Auto) 0.5 % Baso % (Auto) 0.7 % Immature Gran # (Auto) 0.01 (0.00-0.02) K/uL Neut # (Auto) 2.70 (1.4-6.5) K/uL Lymph # (Auto) 1.18 L (1.2-3.4) K/uL [place] # (Auto) 0.40 (0.11-0.59) K/uL Eos # (Auto) 0.02 (0-0.5) K/uL Baso # (Auto) 0.03 (0-0.2) K/uL PT (9.0-12.0) Seconds INR (0.9-1.1) APTT (21.0-31.0) Seconds PTT Ratio D-Dimer (0-500) ug/L FEU Sodium 141 (136-145) mmol/L Potassium 4.2 (3.5-5.1) mmol/L Chloride 106 (98-107) mmol/L Carbon Dioxide 29 (21-32) mmol/L Anion Gap 5.0 (3-11) BUN 22 H (7-18) mg/dl Creatinine 1.22 (0.6-1.4) mg/dl Est Cr Clr Drug Dosing 48.2 ml/min Est GFR ( Amer) 63.6 Est GFR (Non-Af Amer) 54.9 BUN/Creatinine Ratio 18.1 (10-20) Glucose 107 H (70-99) mg/dl Estimat Average Glucose 163 mg/dl Hemoglobin A1c 7.3 H (4.5-5.6) % Calcium 8.5 (8.5-10.1) mg/dl Total Bilirubin 0.6 (0.2-1) mg/dl AST 26 (15-37) U/L ALT 28 (12-78) U/L Alkaline Phosphatase 69 (45-117) U/L Troponin I 0.148 H* (0-0.045) ng/ml Total Protein 6.4 (6.4-8.2) gm/dl Albumin 3.4 (3.4-5.0) gm/dl Globulin 3.0 (2.5-4.0) gm/dl Albumin/Globulin Ratio 1.1 (0.9-2) Lipase 445 H (73-393) U/L 09/16/19 09/16/19 Range/Units 14:19 14:19 WBC (4.8-10.8) K/uL RBC (4.7-6.1) M/uL Hgb (14.0-18.0) g/dL Hct (42-52) % MCV (80-100) fL MCH (25-34) pg MCHC (32-36) g/dL RDW Std Deviation (36.4-46.3) fL RDW Coeff of Lance (11.5-14.5) % Plt Count (130-400) K/uL MPV (7.4-10.4) fL Immature Gran % (Auto) % Neut % (Auto) % Lymph % (Auto) % [place] % (Auto) % Eos % (Auto) % Baso % (Auto) % Immature Gran # (Auto) (0.00-0.02) K/uL Neut # (Auto) (1.4-6.5) K/uL Lymph # (Auto) (1.2-3.4) K/uL [place] # (Auto) (0.11-0.59) K/uL Eos # (Auto) (0-0.5) K/uL Baso # (Auto) (0-0.2) K/uL PT 10.9 (9.0-12.0) Seconds INR 1.1 (0.9-1.1) APTT 23.4 (21.0-31.0) Seconds PTT Ratio 0.9 D-Dimer 490 (0-500) ug/L FEU Sodium (136-145) mmol/L Potassium (3.5-5.1) mmol/L Chloride (98-107) mmol/L Carbon Dioxide (21-32) mmol/L Anion Gap (3-11) BUN (7-18) mg/dl Creatinine (0.6-1.4) mg/dl Est Cr Clr Drug Dosing ml/min Est GFR ( Amer) Est GFR (Non-Af Amer) BUN/Creatinine Ratio (10-20) Glucose (70-99) mg/dl Estimat Average Glucose mg/dl Hemoglobin A1c (4.5-5.6) % Calcium (8.5-10.1) mg/dl Total Bilirubin (0.2-1) mg/dl AST (15-37) U/L ALT (12-78) U/L Alkaline Phosphatase (45-117) U/L Troponin I (0-0.045) ng/ml Total Protein (6.4-8.2) gm/dl Albumin (3.4-5.0) gm/dl Globulin (2.5-4.0) gm/dl Albumin/Globulin Ratio (0.9-2) Lipase (73-393) U/L Imaging Data Radiologist's Impression: Radiology results as stated below per my review and the radiologist's interpretation: XR chest 1V portable CLINICAL HISTORY: Chest Pain pain COMPARISON STUDY: 01/28/2018 FINDINGS: The bones soft tissues and hemidiaphragms are normal. The cardiomediastinal silhouette is normal. The lungs are clear. The pulmonary vasculature is normal. IMPRESSION: Negative chest. The above report was generated using voice recognition software. It may contain grammatical, syntax or spelling errors. Electronically signed by: Jas Haq M.D. 05/10/2019 2:21 PM ECG Data Attestation: I personally reviewed and interpreted this ECG as follows: Indication: chest pain (discomfort) Rate (beats per minute): 77 Rhythm: sinus rhythm Findings: + other (QTC is 436), + PAC and + T-wave inversion (Anterior); no acute ischemic change Comparison ECG Date: from (01/2018) Change: the following changes noted (Anterior T wave changes are new.) Blood Pressure Blood Pressure Findings: Elevated blood pressure Blood Pressure Disposition: further management by hospitalist MDM Narrative This patient was evaluated and appeared to be in no significant distress. IV ac cess was obtained and laboratory work was drawn. Patient was given aspirin 324 mg p.o. Sublingual nitro trial was ordered. Patient's physical examination is consistent with tenderness to the anterior chest wall and epigastric region which causes belching. Otherwise there is no focal finding. EKG reveals a normal sinus rhythm with PACs. T wave changes are noted in the anterior leads without any acute ST elevation. Patient's chest x-ray is clear. Laboratory work reveals an elevated troponin at 0.148. IV heparin was initiated. Patient was advised of the findings and discussed with Dr. Valles of cardiology. Patient will be evaluated by the hospitalist service for further management. Impression & Plan ACS (acute coronary syndrome), Elevated troponin Critical Care Time Critical Care Time: Yes I have personally spent greater than 32 minutes of critical care time in the direct management of this patient. This includes bedside care, interpretation of diagnostic studies, and testing, discussion with consultants, patient, and family members, and other required patient management activities. This 32 minutes is in excess of all separately billable procedures. Discharge Plan Visit Data *Final* Discharge Date/Time: 05/10/19 18:18 Chief Complaint: Cardiac Assessment Stated Complaint: CHEST DISCOMFORT ED Provider: Melinda Saenz Discharge Problem: ACS (acute coronary syndrome), Elevated troponin Patient Disposition: Admitted As Inpatient Discharge Instructions Interventions: ED Discharge Assessment Last Done: 05/10/19 18:18 The scribe's documentation has been prepared under my direction and personally reviewed by me in its entirety. I confirm that the note above accurately reflects all work, treatment, procedures, and medical decision making performed by me.
[2019-05-10] MEDS: SODIUM CHLORIDE 0.9% 1000ML 1,000 ML IV SCH (20:35)
[2019-05-10] MEDS: GABAPENTIN 300 MG CAP PO SCH (20:36)
[2019-05-10 22:41] LABS: INR 1.1 (0.9-1.1); Partial Thromboplastin Ratio 2.5
[2019-05-10 22:45] LABS: Partial Thromboplastin Time 68.9 Seconds (21.0-31.0)
[2019-05-11 05:38] LABS: Basophils # (auto) 0.03 K/uL (0-0.2); Basophils % (auto) 0.8 %; Eosinophils # (auto) 0.03 K/uL (0-0.5); Eosinophils % (auto) 0.8 %; Hematocrit (blood only) 41.4 % (42-52); Lymphocytes # (auto) 1.59 K/uL (1.2-3.4); Lymphocytes % (auto) 41.2 %; Mean Corpuscular Hgb Conc 33.8 g/dL (32-36); Mean Corpuscular Volume 94.7 fL (80-100); Mean Platelet Volume 9.6 fL (7.4-10.4); Monocytes # (auto) 0.36 K/uL (0.11-0.59); Monocytes % (auto) 9.3 %; Neutrophils # (auto) 1.85 K/uL (1.4-6.5); Neutrophils % (auto) 47.9 %; Platelet Count 139 K/uL (130-400); Red Blood Count 4.37 M/uL (4.7-6.1); White Blood Count 3.86 K/uL (4.8-10.8)
[2019-05-11 05:59] LABS: Partial Thromboplastin Ratio 2.3
[2019-05-11 06:05] LABS: BUN Creatinine Ratio 16.6 (10-20); Calcium 8.2 mg/dl (8.5-10.1); Creatinine Clr Calc Pharmacy 42.4 ml/min; Est GFR (Non-African American) 54.3
[2019-05-11 06:08] LABS: Albumin Globulin Ratio 1.1 (0.9-2); Bilirubin,Total 0.7 mg/dl (0.2-1); Globulin 2.7 gm/dl (2.5-4.0); Total Protein 5.7 gm/dl (6.4-8.2)
[2019-05-11 06:09] LABS: Partial Thromboplastin Time 63.2 Seconds (21.0-31.0)
[2019-05-11 06:28] LABS: Estimated Average Glucose 163 mg/dl; Hemoglobin A1C 7.3 % (4.5-5.6)
[2019-05-11] MEDS: POLYETHYLENE (MIRALAX) 17 GM PACK PO SCH (09:00)
[2019-05-11] MEDS: SODIUM CHLORIDE 0.9% 1000ML 1,000 ML IV SCH (09:05)
[2019-05-11] MEDS: GABAPENTIN 300 MG CAP PO SCH ×3 (09:05→22:04)
[2019-05-11] MEDS: ATORVASTATIN 40 MG TAB PO SCH (09:05)
[2019-05-11] MEDS: ASPIRIN 325 MG ECTAB PO SCH (09:05)
[2019-05-11] MEDS ORDERED: HEPARIN (PORCINE) 1000 UNIT/ML 10 ML (CATH LAB USE ONLY) ONE (10:20)
[2019-05-11] MEDS ORDERED: NiCARDipine HCL INJ 2.5 MG/ML 10 ML AMP ONE (10:21)
[2019-05-11] MEDS ORDERED: fentaNYL citrate 100 MCG/2 ML VIAL ONE (10:21)
[2019-05-11] MEDS ORDERED: MIDAZOLAM HCL 1 MG/ML 2ML VIAL ONE (10:22)
[2019-05-11] MEDS ORDERED: NITROGLYCERIN/D5W 100MCG/ML 20ML SYR ONE (10:22)
[2019-05-11] MEDS ORDERED: ADENOSINE IV SOLN 3 MG/ML 20 ML VIAL IV ONE (12:13)
[2019-05-11] MEDS ORDERED: DOPamine 400MG / 250ML D5W (CATH LAB USE ONLY) ONE (12:20)
--- NOTE | 2019-05-11 12:34 | Pre Anesthesia Assessment ---
Date of Service May 11, 2019 Pre Sedation Assessment Vital Signs Temp Pulse Pulse Pulse Resp BP BP 05/11/19 10:47 98.2 F 65 18 115/55 L 05/11/19 07:36 97.7 F 61 20 115/72 05/11/19 03:42 97.7 F 59 L 16 119/68 05/11/19 01:26 66 05/10/19 23:34 98.1 F 58 L 15 159/68 H 05/10/19 18:50 97.9 F 62 18 05/10/19 18:18 68 18 132/72 05/10/19 17:20 73 18 05/10/19 17:10 71 16 05/10/19 17:00 69 20 123/73 05/10/19 16:50 66 19 05/10/19 16:47 70 18 130/71 05/10/19 16:45 73 20 05/10/19 16:41 78 18 05/10/19 16:30 73 19 05/10/19 16:20 70 15 05/10/19 16:10 76 19 05/10/19 16:06 72 18 05/10/19 16:00 70 15 138/69 05/10/19 15:59 70 18 136/70 05/10/19 15:50 79 17 05/10/19 15:41 76 20 05/10/19 15:39 79 80 17 149/91 H 05/10/19 15:30 72 14 05/10/19 15:20 77 17 05/10/19 15:10 76 15 05/10/19 15:00 78 16 05/10/19 14:50 71 13 05/10/19 14:48 75 24 149/75 H 05/10/19 14:44 74 18 05/10/19 14:40 67 15 05/10/19 14:30 71 19 05/10/19 14:20 71 18 05/10/19 14:10 75 21 05/10/19 14:07 05/10/19 14:01 68 20 05/10/19 14:00 76 17 05/10/19 13:11 73 17 99/78 L 05/10/19 12:41 97.7 F 80 16 129/73 BP Pulse Ox 05/11/19 10:47 98 05/11/19 07:36 98 05/11/19 03:42 99 05/11/19 01:26 05/10/19 23:34 99 05/10/19 18:50 135/79 100 05/10/19 18:18 100 05/10/19 17:20 05/10/19 17:10 99 05/10/19 17:00 99 05/10/19 16:50 98 05/10/19 16:47 99 05/10/19 16:45 130/71 99 05/10/19 16:41 05/10/19 16:30 98 05/10/19 16:20 92 05/10/19 16:10 97 05/10/19 16:06 138/69 98 05/10/19 16:00 99 05/10/19 15:59 96 05/10/19 15:50 100 05/10/19 15:41 100 05/10/19 15:39 149/91 H 100 05/10/19 15:30 99 05/10/19 15:20 99 05/10/19 15:10 98 05/10/19 15:00 98 05/10/19 14:50 05/10/19 14:48 05/10/19 14:44 94 05/10/19 14:40 05/10/19 14:30 100 05/10/19 14:20 05/10/19 14:10 05/10/19 14:07 99 05/10/19 14:01 100 05/10/19 14:00 98 05/10/19 13:11 98 05/10/19 12:41 97 Cardiovascular RRR, no murmur, no edema Respiratory normal respiratory effort, lungs clear to auscultation Pre-Sedation Airway Assessment Smoking Status: Never smoker Hx Sleep Apnea: No Hx Difficult Intubation: No Short, Thick Neck: No Thyromental Distance: > or= 3.5 Finger Breadths Mallampati Class: III ASA: ASA3 Procedure Planning Contraindications for Sedation: none Current Medications Reviewed: Yes Notes The planned sedation has been discussed with the patient. Informed Consent was obtained. I have identified the patient, determined the appropriateness of sedation and have assessed the patient immediately prior to the procedure. All medicine(s) and interventions are by my order.
--- NOTE | 2019-05-11 12:35 | Post Anesthesia Assessment ---
Date of Service May 11, 2019 Post Sedation Assessment Vital Signs Temp Pulse Pulse Pulse Resp BP BP 05/11/19 10:47 98.2 F 65 18 115/55 L 05/11/19 07:36 97.7 F 61 20 115/72 05/11/19 03:42 97.7 F 59 L 16 119/68 05/11/19 01:26 66 05/10/19 23:34 98.1 F 58 L 15 159/68 H 05/10/19 18:50 97.9 F 62 18 05/10/19 18:18 68 18 132/72 05/10/19 17:20 73 18 05/10/19 17:10 71 16 05/10/19 17:00 69 20 123/73 05/10/19 16:50 66 19 05/10/19 16:47 70 18 130/71 05/10/19 16:45 73 20 05/10/19 16:41 78 18 05/10/19 16:30 73 19 05/10/19 16:20 70 15 05/10/19 16:10 76 19 05/10/19 16:06 72 18 05/10/19 16:00 70 15 138/69 05/10/19 15:59 70 18 136/70 05/10/19 15:50 79 17 05/10/19 15:41 76 20 05/10/19 15:39 79 80 17 149/91 H 05/10/19 15:30 72 14 05/10/19 15:20 77 17 05/10/19 15:10 76 15 05/10/19 15:00 78 16 05/10/19 14:50 71 13 05/10/19 14:48 75 24 149/75 H 05/10/19 14:44 74 18 05/10/19 14:40 67 15 05/10/19 14:30 71 19 05/10/19 14:20 71 18 05/10/19 14:10 75 21 05/10/19 14:07 05/10/19 14:01 68 20 05/10/19 14:00 76 17 05/10/19 13:11 73 17 99/78 L 05/10/19 12:41 97.7 F 80 16 129/73 BP Pulse Ox 05/11/19 10:47 98 05/11/19 07:36 98 05/11/19 03:42 99 05/11/19 01:26 05/10/19 23:34 99 05/10/19 18:50 135/79 100 05/10/19 18:18 100 05/10/19 17:20 05/10/19 17:10 99 05/10/19 17:00 99 05/10/19 16:50 98 05/10/19 16:47 99 05/10/19 16:45 130/71 99 05/10/19 16:41 05/10/19 16:30 98 05/10/19 16:20 92 05/10/19 16:10 97 05/10/19 16:06 138/69 98 05/10/19 16:00 99 05/10/19 15:59 96 05/10/19 15:50 100 05/10/19 15:41 100 05/10/19 15:39 149/91 H 100 05/10/19 15:30 99 05/10/19 15:20 99 05/10/19 15:10 98 05/10/19 15:00 98 05/10/19 14:50 05/10/19 14:48 05/10/19 14:44 94 05/10/19 14:40 05/10/19 14:30 100 05/10/19 14:20 05/10/19 14:10 05/10/19 14:07 99 05/10/19 14:01 100 05/10/19 14:00 98 05/10/19 13:11 98 05/10/19 12:41 97 Recovery Score Activity: Moves 4 extremities Respiration: Deep Breath/Cough Circulation: +/-20% PreAnes Value Consciousness: Fully Awake Oxygen Saturation: O2 needed for >90% Discharge Sedation Level of Care: Fast Track Phase II Post Sedation Plan On clinical assessment, the patient appears to have tolerated the sedation without complications. Patient is recovering as anticipated. Patient will continue to be monitored by nursing and may be discharged when sedation discharge criteria are met per below protocol. Upon Completions of procedure and additional 15 minutes continue every 5 minute vital signs and the P.A.R. score; then discharge to a Phase I or Fast Track to Phase II per the following guidelines: * Discharge Patient to appropriate Phase II area if PAR is 8 or greater or return to pre- procedure baseline. The post - procedure orders will be as directed. * If PAR score is less than 8 or not return to pre-procedure baseline then patient will follow Phase I monitoring till PAR is reached for Phase II. The Phase I may be done in procedure room or may call to secure a Phase I area. * If naloxone or flumazenil are used for reversal, hold in Phase I for continued monitoring from when last reversal dose was given for a minimum of 60 minutes or longer pending the nurse and/or physician discretion of patient condition before discharge to Phase II. Please call the Sedation Physician to re-evaluate and complete post-note for discharge to Phase II area. Do NOT discharge from procedure sedation or Phase 1 until post- sedation evaluation note is complete by procedure /sedation MD Sedation Discharge Instructions to be given to the patient at discharge to home.
--- NOTE | 2019-05-11 12:37 | Cardiac Catheterization ---
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[employer] Cardiac Status Clinical evaluation leading to the procedure CAD Presenation: Non STEMI Anginal Classification: CCS IV Heart Failure: No Cardiogenic Shock within 24 Hours: No Cardiac Arrest within 24 Hours: No Imaging Studies Past 6 Months: Yes Stress Studies Past 6 Months: No Diagnostic Physicians Name: Rad Novak MD Status: Elective Closure Device Percutaneous Entry Location: Radial Closure Device: Radial Band Recommendations: None and Medical Therapy and/or Counseling Intraprocedure Events Significant Disection: No Perforation: No Cardiac Cath Procedure Full Procedure Date May 11, 2019 Pre-Procedure Diagnosis Pre-Procedure Diagnosis: Non STEMI AUC Score AUC Score: 8 Post-Procedure Diagnosis Post-Procedure Diagnosis: Severe CAD and Normal Intracardiac Pressures Procedure(s) Performed Procedure(s) Performed: Coronary Angiography, Left Heart Cath and Fractional Flow [place] Procedures Tech Rad Novak MD Retail Salesperson(s) Radha Estimated Blood Loss Estimated Blood Loss: 10 Medication(s) Medication(s): Fentanyl, Heparin, Lidocaine 1%, Nicardipine, Nitroglycerin and Versed Summary of Findings Indication: NSTEMI Access: 6 Fr right radial artery Catheters: [place], JR4 guide Findings: LM -Short vessel without significant disease LAD -moderate caliber, diffuse 20% proximal disease, 2030% mid segment disease, distal luminal irregularities as wraps around apex small second diagonal with 95% acute appearing stenosis (vessel< 2mm). Circumflex -moderate caliber, 20% mid segment, moderate caliber left PLB with luminal irregularities RCA -moderate caliber vessel, dominant, 40% proximal, 40% mid, 50 to 60% calcified latemid, small PDA, PLB with luminal irregularities LVEDP -8 FFR of latemid RCA RCA cannulated with JR4 guide BMW wire placed in the distal vessel ASIST FFR catheter placed into distal RCA Pd/Pa 0.94 Post procedure angiography revealed no apparent complications. Hypertension with nitroglycerin, sedation resolved with IV fluids, brief dopamine. Arterial Closure: TR band Summary: 1. Acute 95% proximal second diagonal (culprit). 2. 50 to 60% latemid RCA (nonobstructive by Pd/Pa of 0.94). 3. Normal intracardiac filling pressure Recommendations: Diagonal vessel too small for percutaneous intervention. Recommend medical management. Can resume heparin infusion when TR band removed. Start clopidogrel, continue aspirin, statin Hemodynamics Rest Ao:: 142/69/103 Final Ao: 106/49/67 LV: 137/8 Recommendations Recommendations: None and Medical Therapy and/or Counseling Specimens Specimens: None Radiation Exposure (mGy) 699 Contrast (mls) 70 Fluids (cc crystalloids) Fluids (cc crystalloids): 300 Drains Drains: None Anesthesia Moderate Procedural Complication(s) None Disposition PCU
[2019-05-11] MEDS ORDERED: SODIUM CHLORIDE 0.9% 1000ML 750 ML IV SCH (13:00)
[2019-05-11] MEDS ORDERED: CLOPIDOGREL BISULFATE 75 MG TAB PO ONE (13:37)
--- NOTE | 2019-05-11 15:43 | Cardiology Progress Note ---
Date of Service May 11, 2019 Assessment & Plan (1) ACS (acute coronary syndrome): Cardiac catheterization performed by Dr. Novak. This revealed a culprit 95% stenosis in a small 2nd diagonal branch (less than 2 mm). No intervention was performed. Other disease reveals a 20% proximal and mid LAD stenosis and a 20% mid LCx stenosis. There were 40% stenoses in the proximal and mid RCA and a 50-60% stenosis in the late mid RCA. FFR was performed on the RCA and negative. Medical management recommended with aspirin, Plavix, and atorvastatin. Would like to add low-dose beta-blockade, however, hypotension and bradycardia will make that difficult. (2) Elevated troponin: Troponins elevated prompting a cardiac catheterization as described above. (3) Dyslipidemia: The patient is tolerating atorvastatin 40 mg daily. Subjective The patient is resting comfortably in bed without complaints of chest pain or dyspnea. If at long discussion with the patient his regarding need for cardiac catheterization as his troponin I level is elevated. Physical Exam Physical Exam: In general this is a well-developed well-nourished white male in no acute distress. HEENT exam is negative. Neck is supple with full carotid upstrokes. There are no carotid bruits. Jugular venous pressure is flat at 90. There is no thyromegaly. Cardiovascular exam reveals a regular rhythm with a normal S1 and S2. No S3, S4, or murmurs are noted. Lungs are clear with out rales, rhonchi, or wheezes. Abdomen is soft and nontender without bruits. Extremities reveal intact radial artery and posterior tibial pulses bilaterally. There is no peripheral edema. Results & Data Vital Signs (Past 12 Hours) Vital Signs Temp Pulse Pulse Resp BP Pulse Ox 05/11/19 14:07 78 18 102/56 L 94 05/11/19 13:37 70 16 89/50 L 94 05/11/19 13:22 62 18 105/58 L 92 05/11/19 13:07 63 15 105/58 L 95 05/11/19 12:52 36.5 C 65 16 98/59 L 99 05/11/19 10:47 36.8 C 65 18 115/55 L 98 05/11/19 07:36 36.5 C 61 20 115/72 98 05/11/19 03:42 36.5 C 59 L 16 119/68 99 Laboratory Results CBC notes hemoglobin of 14.0, hematocrit 41.4, white count 3.86, and a platelet count of [id number]. Electrolytes noted sodium of 145, potassium 4.0, chloride 109, bicarb 29, BUN 20, creatinine 1.23, glucose of 130. Troponin I level on presentation was 1.33 with follow-up values of 2.47 and 2.44. alarm security or surveillance monitor is benign. Diagnostic Findings alarm security or surveillance monitor is benign. PG Care Time/CCT Total # of Minutes Spent Total Time Spent with Patient: Total time spent is greater than 50% in coordination of care (as documented) at patient's floor/unit and/or counseling patient:
[2019-05-12] MEDS: ASPIRIN 325 MG ECTAB PO SCH (08:13)
[2019-05-12] MEDS: GABAPENTIN 300 MG CAP PO SCH (08:13)
[2019-05-12] MEDS: ATORVASTATIN 40 MG TAB PO SCH (08:13)
[2019-05-12] MEDS: POLYETHYLENE (MIRALAX) 17 GM PACK PO SCH (08:14)
[2019-05-12] MEDS ORDERED: CLOPIDOGREL BISULFATE 75 MG TAB PO SCH (09:00)
[2019-05-12 10:26] LABS: BUN Creatinine Ratio 13.7 (10-20); Calcium 8.3 mg/dl (8.5-10.1); Est GFR (African American) 56.8; Magnesium 2.1 mg/dl (1.8-2.4); Potassium 4.2 mmol/L (3.5-5.1)
--- NOTE | 2019-05-12 11:40 | Cardiology Progress Note ---
Date of Service May 12, 2019 Assessment & Plan (1) ACS (acute coronary syndrome): The culprit lesion was a 95% stenosis in a small 2nd diagonal branch (less than 2 mm). There were 40% stenoses in the proximal and mid RCA and a 50-60% stenosis in the late mid RCA. FFR was performed and negative. Medical management recommended. Would like to add low-dose beta-blockade, however, hypotension and bradycardia will make that difficult. (2) Elevated troponin: Troponin peaked at 2.47. (3) Dyslipidemia: Continue atorvastatin 40 mg daily. Subjective The patient is resting comfortably been without complaints of chest pain or dyspnea. Has been ambulatory without difficulty. Is anxious for hospital discharge. Physical Exam Physical Exam: In general this is a well-developed well-nourished white male in no acute distress. HEENT exam is negative. Neck is supple with full carotid upstrokes. There are no carotid bruits. Jugular venous pressure is flat at 90. There is no thyromegaly. Cardiovascular exam reveals a regular rhythm with a normal S1 and S2. No S3, S4, or murmurs are noted. Lungs are clear without rales, rhonchi, or wheezes. Abdomen is soft and nontender without bruits. Extremities reveal a dry dressing across the right wrist. There is no peripheral edema. Results & Data Vital Signs (Past 12 Hours) Vital Signs Temp Pulse Resp BP Pulse Ox 05/12/19 08:22 36.6 C 73 16 118/68 96 05/12/19 05:39 36.4 C L 67 19 106/66 97 05/11/19 23:56 36.9 C 68 19 115/73 97 Diagnostic Findings youth nutritional monitor is benign. PG Care Time/CCT Total # of Minutes Spent Total Time Spent with Patient: Total time spent is greater than 50% in coordination of care (as documented) at patient's floor/unit and/or counseling patient:
--- NOTE | 2019-05-12 12:58 | Discharge Summary ---
Date of Service May 12, 2019 Discharge Data Allergies Allergy/AdvReac Type Severity Reaction Status Date / Time morphine Allergy Unknown confusion Verified 05/10/19 13:47 codeine Allergy Verified 05/10/19 13:47 metformin Allergy Verified 05/10/19 13:47 sertraline AdvReac Nausea Verified 05/10/19 13:47 Consultations 05/10/19 14:49 ED Decision to Admit Stat 05/10/19 17:47 Consult Cardiology Routine Procedures Performed Operation Date: 05/11/19 11:30 Actual Procedures p Cath, Left with Cors and Vent - Stuart Novak MD s Cineradiography w/Routine Exam - Stuart Novak MD s Fraction Flow [place] SGL Ves - Stuart Novak MD Ordered Studies 05/11/19 11:13 CL Cath Imgs for PACS use only Routine Discharge Plan Discharge Items Patient Disposition: Home - Self-Care Reason For Visit: CHEST PAIN Discharge Diagnosis: Non ST elevation myocardial infarction (heart attack) Activity: Resume your previous activity Non-emergency contact: Primary Care Provider and Sweep Press Operator Call non-emergency contact if: you have any medication questions Follow-up/Referrals: David Piña MD [Primary Care Provider] - Diet: Regular Addtl Attending Provider Instructions: Home Care: * Take your medications exactly as directed. Don't skip doses. * Remember that recovery after a heart attack takes time. Plan to rest for at lease 4-8 weeks while you recover. Then return to normal activity when your doctor says it's okay. * Ask your doctor about joining a heart rehabilitation program. * Tell your doctor if you are feeling depressed. Feelings of sadness are common after a heart attack, but it is important that you speak to someone if you are feeling overwhelmed by these feelings. * If you are having chest pain, call 911 for an ambulance. Do NOT drive yourself to the hospital. * Ask your family members to learn CPR. * Learn to take your own blood pressure and pulse. Keep a record of your results. Ask your doctor when you should seek emergency medical attention. He or she will tell you which blood pressure reading is dangerous. Lifestyle Changes: * Maintain a healthy weight. Get help to lose any extra pounds. * Cut back on salt. * Limit canned, dried, packaged, and fast foods. * Don't add salt to your food. * Season foods with herbs instead of salt when you cook. * Break the smoking habit. Enroll in a stop-smoking program to improve your chances of success. * Limit fatty foods. * Ask your doctor about having your lipid levels checked regularly. * Build up your activity according to your doctor's recommendation. * Ask your doctor when it's okay to resume sexual activity. * Try to manage stress. Follow Up: It is important for you to keep your follow up appointments with your medical provider. Pending Studies at Discharge: No Stand-Alone Forms: My [facility] Medications and DC Order Prescriptions: New atorvastatin 40 mg Tablet 40 mg PO QPM Qty: 30 RF: 0 clopidogrel 75 mg Tablet 75 mg PO QAM Qty: 30 RF: 0 nitroglycerin [Nitrostat] 0.4 mg Tablet, Sublingual 0.4 mg sublingual UD PRN (Reason: chest pain) Qty: 10 RF: 0 aspirin 81 mg tablet,delayed release (DR/EC) 81 mg PO DAILY Qty: 90 RF: 1 Continued gabapentin 300 mg capsule 300 mg PO TID RF: 0 lorazepam 1 mg tablet 1 mg PO DAILY PRN (Reason: Anxiety) Qty: 90 RF: 0 polyethylene glycol 3350 17 gram/dose powder 17 gm PO QAM RF: 0 Discharge Orders: Discharge Order (Routine); Ordered 05/12/19 Ordered By: Jose Elias Tolbert Admission Data Admit Date/Time: 05/10/19 17:39 Attending Provider: Jose Elias Tolbert Admit Provider: Kyree Acosta Primary Care Provider: David Piña Other Providers: David Valles ; Minh Nowak Other Interventions: Discharge Summary Assessment (RN) Last Done: 05/12/19 12:45
== END 2019-05-12 14:06 | disposition home or self-care (01) | DRG 282 ==
LOC: ED 12:34 → SUATTDRO 17:39 → 2S 17:39
DX: I21.4 Non-ST elevation (NSTEMI) myocardial infarction; K29.70 Gastritis, unspecified, without bleeding; Z82.49 Family history of ischemic heart disease and other diseases of the circulatory system; Z88.5 Allergy status to narcotic agent; E78.5 Hyperlipidemia, unspecified; R79.89 Other specified abnormal findings of blood chemistry; K58.9 Irritable bowel syndrome, unspecified; K21.9 Gastro-esophageal reflux disease without esophagitis; Z88.8 Allergy status to other drugs, medicaments and biological substances; I25.10 Atherosclerotic heart disease of native coronary artery without angina pectoris; E11.9 Type 2 diabetes mellitus without complications